=== PATIENT | male | born 1940 | race Caucasian/White ===

== ENCOUNTER → 2017-04-22 | Outpatient (CLI) | payer MEDICARE ==
[2017-04-22 13:16] LABS: MEAN CORPUSCULAR HEMOGLOBIN 32.6 pg (27.0-33.0); MEAN CORPUSCULAR VOLUME 93.1 fl (80.0-96.0); WHITE BLOOD COUNT 7.6 K/mm3 (4.0-10.0)
[2017-04-22 14:24] LABS: ALBUMIN/GLOBULIN RATIO 1.29 (1.00-1.93); ALKALINE PHOSPHATASE 57 U/L (45-117); ALT/SGPT 31 U/L (12-78); ANION GAP 7 MEQ/L (8-16); AST/SGOT 18 U/L (15-37); BILIRUBIN,TOTAL 0.7 MG/DL (0.2-1.0); BLOOD UREA NITROGEN 23 MG/DL (7-18); CARBON DIOXIDE LEVEL 30 MEQ/L (21-32); CHLORIDE LEVEL 104 MEQ/L (98-107); CHOLESTEROL LEVEL 183 MG/DL (<200); CREATININE FOR GFR 0.87 MG/DL (0.70-1.30); GLOMERULAR FILTRATION RATE > 60.0 (>42); GLUCOSE, FASTING 88 MG/DL (83-110); MAGNESIUM LEVEL 2.1 MG/DL (1.8-2.4); SODIUM LEVEL 141 MEQ/L (136-145); TOTAL PROTEIN 7.1 GM/DL (6.4-8.2); TRIGLYCERIDES LEVEL 162 MG/DL (<150)
== END ==
LOC: M WUC 09:53
PROVIDERS: ATTEND Internal Medicine
DX: I10 Essential (primary) hypertension (principal); E78.00 Pure hypercholesterolemia, unspecified; Z79.899 Other long term (current) drug therapy

== ENCOUNTER → 2017-10-25 | Outpatient (CLI) | payer MEDICARE, OTHER ==
[2017-10-25 13:42] LABS: MEAN CORPUSCULAR HEMOGLOBIN 30.5 pg (27.0-33.0); MEAN CORPUSCULAR HGB CONC 33.5 g/dl (32.0-36.5); PLATELET COUNT, AUTOMATED 359 10^3/uL (150-450); RED CELL DISTRIBUTION WIDTH 12.2 % (11.5-14.5); WHITE BLOOD COUNT 7.4 10^3/uL (4.0-10.0)
[2017-10-25 14:08] LABS: ALBUMIN 4.3 GM/DL (3.2-5.2); ALBUMIN/GLOBULIN RATIO 1.26 (1.00-1.93); ALKALINE PHOSPHATASE 65 U/L (45-117); ALT/SGPT 32 U/L (12-78); ANION GAP 9 MEQ/L (8-16); AST/SGOT 24 U/L (7-37); BILIRUBIN,TOTAL 0.7 MG/DL (0.2-1.0); BLOOD UREA NITROGEN 18 MG/DL (7-18); CALCIUM LEVEL 8.9 MG/DL (8.8-10.2); CARBON DIOXIDE LEVEL 28 MEQ/L (21-32); CHLORIDE LEVEL 102 MEQ/L (98-107); CHOLESTEROL LEVEL 141 MG/DL (<200); GLOMERULAR FILTRATION RATE > 60.0 (>42); GLUCOSE, FASTING 102 MG/DL (83-110); MAGNESIUM LEVEL 2.2 MG/DL (1.8-2.4); POTASSIUM SERUM 4.1 MEQ/L (3.5-5.1); SODIUM LEVEL 139 MEQ/L (136-145); TOTAL PROTEIN 7.7 GM/DL (6.4-8.2); TRIGLYCERIDES LEVEL 104 MG/DL (<150)
== END ==
LOC: M WUC 10:01
PROVIDERS: ATTEND Internal Medicine
DX: I10 Essential (primary) hypertension (principal); E78.00 Pure hypercholesterolemia, unspecified; Z79.899 Other long term (current) drug therapy

== ENCOUNTER → 2018-01-24 | Outpatient (CLI) | payer OTHER, MEDICARE | LOC: M RAD 12:55 | DX: M25.511 Pain in right shoulder (principal) | CPT/HCPCS: 73221 ==

== ENCOUNTER → 2018-05-16 | Outpatient (CLI) | payer OTHER ==
[2018-05-16 12:36] LABS: ALBUMIN 4.2 GM/DL (3.2-5.2); ALKALINE PHOSPHATASE 77 U/L (45-117); ALT/SGPT 34 U/L (12-78); ANION GAP 9 MEQ/L (8-16); AST/SGOT 23 U/L (7-37); BILIRUBIN,TOTAL 0.9 MG/DL (0.2-1.0); BLOOD UREA NITROGEN 22 MG/DL (7-18); CALCIUM LEVEL 8.7 MG/DL (8.8-10.2); CARBON DIOXIDE LEVEL 29 MEQ/L (21-32); CHLORIDE LEVEL 101 MEQ/L (98-107); CHOLESTEROL LEVEL 189 MG/DL (<200); CHOLESTEROL RISK RATIO 4.108 (<5); CREATININE FOR GFR 0.89 MG/DL (0.70-1.30); GLOMERULAR FILTRATION RATE > 60.0 (>42); GLUCOSE, FASTING 87 MG/DL (70-100); HDL CHOLESTEROL 46 MG/DL (>40); LDL CHOLESTEROL 114.2 MG/DL (<100); MAGNESIUM LEVEL 2.1 MG/DL (1.8-2.4); NON-HDL-C 143 MG/DL; POTASSIUM SERUM 3.9 MEQ/L (3.5-5.1); SODIUM LEVEL 139 MEQ/L (136-145); TOTAL PROTEIN 7.7 GM/DL (6.4-8.2); TRIGLYCERIDES LEVEL 144 MG/DL (<150)
== END ==
LOC: M WUC 10:06
DX: I10 Essential (primary) hypertension (principal); E78.00 Pure hypercholesterolemia, unspecified
CPT/HCPCS: 83735

== ENCOUNTER → 2018-07-21 | Outpatient (REF) | payer MEDICARE, MEDICAID ==
[2018-07-21 12:20] LABS: APPEARANCE, URINE HAZY (CLEAR); BACTERIA, URINE AUTO NEGATIVE (NEGATIVE); BILIRUBIN, URINE AUTO NEGATIVE (NEGATIVE); BLOOD, URINE BLOOD NEGATIVE (NEGATIVE); COLOR, URINE YELLOW (YELLOW); GLUCOSE, URINE (UA) AUTO NEGATIVE (NEGATIVE); KETONE, URINE AUTO TRACE mg/dL (NEGATIVE); LEUKOCYTE ESTERASE, URINE AUTO NEGATIVE (NEGATIVE); MUCUS, URINE SMALL (NEGATIVE); NITRITE, URINE AUTO NEGATIVE (NEGATIVE); PROTEIN, URINE AUTO NEGATIVE (NEGATIVE); RBC, URINE AUTO 1 /HPF (0-3); SPECIFIC GRAVITY URINE AUTO 1.023 (1.002-1.035); SQUAMOUS EPITHELIAL CELL UR AU 0 /HPF (0-6); WBC, URINE AUTO 2 /HPF (0-3)
== END ==
LOC: M SFHCPLAZ 09:17
DX: R30.0 Dysuria (principal)
CPT/HCPCS: 81001

== ENCOUNTER → 2018-11-21 | Outpatient (REF) | payer MEDICARE, MEDICAID ==
[2018-11-21 12:20] LABS: HEMATOCRIT 37.3 % (42.0-52.0); HEMOGLOBIN 12.6 g/dl (13.5-17.5); MEAN CORPUSCULAR HEMOGLOBIN 30.3 pg (27.0-33.0); MEAN CORPUSCULAR HGB CONC 33.8 g/dl (32.0-36.5); MEAN CORPUSCULAR VOLUME 89.7 fl (80.0-96.0); PLATELET COUNT, AUTOMATED 358 10^3/uL (150-450); RED BLOOD COUNT 4.16 10^6/uL (4.30-6.10); WHITE BLOOD COUNT 19.3 10^3/uL (4.0-10.0)
[2018-11-21 12:32] LABS: ALBUMIN 4.3 GM/DL (3.2-5.2); ALT/SGPT 29 U/L (12-78); BILIRUBIN,TOTAL 0.6 MG/DL (0.2-1.0); BLOOD UREA NITROGEN 25 MG/DL (7-18); CALCIUM LEVEL 9.3 MG/DL (8.8-10.2); CARBON DIOXIDE LEVEL 23 MEQ/L (21-32); CHLORIDE LEVEL 104 MEQ/L (98-107); CHOLESTEROL LEVEL 170 MG/DL (<200); CHOLESTEROL RISK RATIO 2.931 (<5); CREATININE FOR GFR 0.89 MG/DL (0.70-1.30); GLOMERULAR FILTRATION RATE > 60.0 (>35); GLUCOSE, FASTING 104 MG/DL (70-100); HDL CHOLESTEROL 58 MG/DL (>40); LDL CHOLESTEROL 92 MG/DL (<100); MAGNESIUM LEVEL 2.3 MG/DL (1.8-2.4); NON-HDL-C 112 MG/DL; SODIUM LEVEL 140 MEQ/L (136-145); TOTAL PROTEIN 7.9 GM/DL (6.4-8.2); TRIGLYCERIDES LEVEL 98 MG/DL (<150)
== END ==
LOC: M SFHCPLAZ 10:40
PROVIDERS: ATTEND Internal Medicine
DX: D64.9 Anemia, unspecified (principal); I10 Essential (primary) hypertension; E78.00 Pure hypercholesterolemia, unspecified

== ENCOUNTER → 2019-05-05 | Outpatient (REF) | payer MEDICARE, MEDICAID ==
[2019-05-05 10:13] LABS: BASO # 0.1 10^3/uL (0.0-0.2); EOS # 0.3 10^3/uL (0.0-0.50); HEMATOCRIT 39.8 % (42.0-52.0); HEMOGLOBIN 13.4 g/dl (13.5-17.5); LYMPH # 1.7 10^3/uL (1.5-4.5); LYMPH % 20.2 % (24.0-44.0); MEAN CORPUSCULAR HEMOGLOBIN 31.6 pg (27.0-33.0); MEAN CORPUSCULAR HGB CONC 33.7 g/dl (32.0-36.5); MEAN CORPUSCULAR VOLUME 93.9 fl (80.0-96.0); MONO # 0.9 10^3/uL (0.0-0.8); MONO % 10.4 % (0.0-5.0); NEUTROPHILS # 5.3 10^3/uL (1.8-7.7); NEUTROPHILS % 63.9 % (36.0-66.0); PLATELET COUNT, AUTOMATED 345 10^3/uL (150-450); RED BLOOD COUNT 4.24 10^6/uL (4.30-6.10); WHITE BLOOD COUNT 8.4 10^3/uL (4.0-10.0)
[2019-05-05 10:54] LABS: ALBUMIN 4.2 GM/DL (3.2-5.2); ALT/SGPT 31 U/L (12-78); BILIRUBIN,TOTAL 0.5 MG/DL (0.2-1.0); BLOOD UREA NITROGEN 23 MG/DL (7-18); CALCIUM LEVEL 9.2 MG/DL (8.8-10.2); CARBON DIOXIDE LEVEL 27 MEQ/L (21-32); CHLORIDE LEVEL 103 MEQ/L (98-107); CHOLESTEROL LEVEL 166 MG/DL (<200); CHOLESTEROL RISK RATIO 3.531 (<5); CREATININE FOR GFR 0.86 MG/DL (0.70-1.30); FERRITIN 43 NG/ML (26-388); FOLATE 14.7 NG/ML; GLOMERULAR FILTRATION RATE > 60.0 (>35); GLUCOSE, FASTING 95 MG/DL (70-100); HDL CHOLESTEROL 47 MG/DL (>40); IRON (FE) 100 UG/DL (65-175); LDL CHOLESTEROL 88 MG/DL (<100); MAGNESIUM LEVEL 2.1 MG/DL (1.8-2.4); NON-HDL-C 119 MG/DL; PERCENT SATURATION 31.3 % (19.7-50.0); POTASSIUM SERUM 4.3 MEQ/L (3.5-5.1); SODIUM LEVEL 138 MEQ/L (136-145); TOTAL IRON BINDING CAPACITY 320 UG/DL (250-450); TOTAL PROTEIN 7.5 GM/DL (6.4-8.2); TRIGLYCERIDES LEVEL 154 MG/DL (<150); VITAMIN B12 LEVEL 402 PG/ML
== END ==
LOC: M SFHCPLAZ 08:16
PROVIDERS: ATTEND Internal Medicine
DX: I10 Essential (primary) hypertension (principal); E78.00 Pure hypercholesterolemia, unspecified; D64.9 Anemia, unspecified

== ENCOUNTER → 2019-11-03 | Outpatient (REF) | payer MEDICARE, MEDICAID ==
[2019-11-03 14:17] LABS: HEMATOCRIT 41.3 % (42.0-52.0); MEAN CORPUSCULAR HEMOGLOBIN 29.3 pg (27.0-33.0); MEAN CORPUSCULAR HGB CONC 31.5 g/dl (32.0-36.5); PLATELET COUNT, AUTOMATED 355 10^3/uL (150-450); RED BLOOD COUNT 4.44 10^6/uL (4.30-6.10); WHITE BLOOD COUNT 6.4 10^3/uL (4.0-10.0)
[2019-11-03 14:25] LABS: ALBUMIN 4.1 GM/DL (3.2-5.2); ALT/SGPT 28 U/L (12-78); BILIRUBIN,TOTAL 0.5 MG/DL (0.2-1.0); BLOOD UREA NITROGEN 21 MG/DL (7-18); CARBON DIOXIDE LEVEL 29 MEQ/L (21-32); CHLORIDE LEVEL 104 MEQ/L (98-107); CHOLESTEROL LEVEL 170 MG/DL (<200); CHOLESTEROL RISK RATIO 3.695 (<5); CREATININE FOR GFR 0.89 MG/DL (0.70-1.30); GLOMERULAR FILTRATION RATE > 60.0 (>35); GLUCOSE, FASTING 97 MG/DL (70-100); HDL CHOLESTEROL 46 MG/DL (>40); LDL CHOLESTEROL 102 MG/DL (<100); MAGNESIUM LEVEL 1.9 MG/DL (1.8-2.4); NON-HDL-C 124 MG/DL; SODIUM LEVEL 138 MEQ/L (136-145); TOTAL PROTEIN 7.3 GM/DL (6.4-8.2); TRIGLYCERIDES LEVEL 108 MG/DL (<150)
== END ==
LOC: M SFHCPLAZ 09:37
PROVIDERS: ATTEND Internal Medicine
DX: J45.909 Unspecified asthma, uncomplicated (principal); I10 Essential (primary) hypertension; E78.00 Pure hypercholesterolemia, unspecified

== ENCOUNTER → 2020-05-18 | Outpatient (REF) | payer MEDICARE, MEDICAID ==
[2020-05-18 11:40] LABS: HEMATOCRIT 41.2 % (42.0-52.0); HEMOGLOBIN 13.2 g/dl (13.5-17.5); MEAN CORPUSCULAR HEMOGLOBIN 29.3 pg (27.0-33.0); MEAN CORPUSCULAR VOLUME 91.6 fl (80.0-96.0); PLATELET COUNT, AUTOMATED 337 10^3/uL (150-450)
[2020-05-18 12:19] LABS: ALBUMIN 4.1 GM/DL (3.2-5.2); ALT/SGPT 27 U/L (12-78); BILIRUBIN,TOTAL 0.6 MG/DL (0.2-1.0); BLOOD UREA NITROGEN 21 MG/DL (7-18); CARBON DIOXIDE LEVEL 30 MEQ/L (21-32); CHLORIDE LEVEL 104 MEQ/L (98-107); CREATININE FOR GFR 0.85 MG/DL (0.70-1.30); GLOMERULAR FILTRATION RATE > 60.0 (>35); GLUCOSE, FASTING 96 MG/DL (70-100); MAGNESIUM LEVEL 2.3 MG/DL (1.8-2.4); POTASSIUM SERUM 4.1 MEQ/L (3.5-5.1); SODIUM LEVEL 138 MEQ/L (136-145); TOTAL PROTEIN 7.7 GM/DL (6.4-8.2)
== END ==
LOC: M PLALAB 07:58
PROVIDERS: ATTEND Internal Medicine
DX: D64.9 Anemia, unspecified (principal); I10 Essential (primary) hypertension

== ENCOUNTER → 2020-10-26 | Outpatient (CLI) | payer SELFPAY | LOC: M LABSMTC 13:53 | PROVIDERS: ATTEND Pediatrics | DX: Z20.828 Contact with and (suspected) exposure to other viral communicable diseases (principal) ==

== ENCOUNTER → 2020-11-15 | Outpatient (REF) | payer MEDICARE, MEDICAID ==
[2020-11-15 11:12] LABS: ALBUMIN 4.1 GM/DL (3.2-5.2); ALT/SGPT 30 U/L (12-78); BILIRUBIN,TOTAL 0.8 MG/DL (0.2-1.0); BLOOD UREA NITROGEN 17 MG/DL (7-18); CALCIUM LEVEL 9.2 MG/DL (8.8-10.2); CARBON DIOXIDE LEVEL 30 MEQ/L (21-32); CHLORIDE LEVEL 103 MEQ/L (98-107); CHOLESTEROL LEVEL 155 MG/DL (<200); CHOLESTEROL RISK RATIO 3.297 (<5); GLOMERULAR FILTRATION RATE > 60.0 (>35); GLUCOSE, FASTING 87 MG/DL (70-100); HDL CHOLESTEROL 47 MG/DL (>40); LDL CHOLESTEROL 76 MG/DL (<100); MAGNESIUM LEVEL 2.2 MG/DL (1.8-2.4); NON-HDL-C 108 MG/DL; SODIUM LEVEL 137 MEQ/L (136-145); TOTAL PROTEIN 7.4 GM/DL (6.4-8.2); TRIGLYCERIDES LEVEL 159 MG/DL (<150)
== END ==
LOC: M PLALAB 08:21
PROVIDERS: ATTEND Internal Medicine
DX: I10 Essential (primary) hypertension (principal); E78.00 Pure hypercholesterolemia, unspecified

== ENCOUNTER → 2021-05-22 | Outpatient (CLI) | payer MEDICARE, MEDICAID ==
[2021-05-22 11:30] LABS: BASO # 0.1 10^3/uL (0.0-0.2); EOS # 0.4 10^3/uL (0.0-0.5); EOS % 4.6 % (0.0-3.0); HEMATOCRIT 39.8 % (42.0-52.0); HEMOGLOBIN 13.1 g/dl (13.5-17.5); LYMPH % 24.1 % (24.0-44.0); MEAN CORPUSCULAR HEMOGLOBIN 30.3 pg (27.0-33.0); MEAN CORPUSCULAR HGB CONC 32.9 g/dl (32.0-36.5); MEAN CORPUSCULAR VOLUME 91.9 fl (80.0-96.0); MONO # 0.8 10^3/uL (0.0-0.8); MONO % 9.3 % (2.0-8.0); NEUTROPHILS % 60.5 % (36.0-66.0); PLATELET COUNT, AUTOMATED 424 10^3/uL (150-450); RED BLOOD COUNT 4.33 10^6/uL (4.30-6.10); WHITE BLOOD COUNT 8.2 10^3/uL (4.0-10.0)
[2021-05-22 12:18] LABS: ALBUMIN 4.2 GM/DL (3.2-5.2); ALT/SGPT 32 U/L (12-78); BILIRUBIN,TOTAL 0.7 MG/DL (0.2-1.0); BLOOD UREA NITROGEN 21 MG/DL (7-18); CALCIUM LEVEL 9.2 MG/DL (8.8-10.2); CARBON DIOXIDE LEVEL 28 MEQ/L (21-32); CHLORIDE LEVEL 103 MEQ/L (98-107); CHOLESTEROL LEVEL 202 MG/DL (<200); CHOLESTEROL RISK RATIO 4.697 (<5); CREATININE FOR GFR 0.97 MG/DL (0.70-1.30); GLOMERULAR FILTRATION RATE > 60.0 (>35); GLUCOSE, FASTING 98 MG/DL (70-100); HDL CHOLESTEROL 43 MG/DL (>40); LDL CHOLESTEROL 130 MG/DL (<100); MAGNESIUM LEVEL 2.2 MG/DL (1.8-2.4); NON-HDL-C 159 MG/DL; POTASSIUM SERUM 4.2 MEQ/L (3.5-5.1); SODIUM LEVEL 137 MEQ/L (136-145); TOTAL PROTEIN 7.7 GM/DL (6.4-8.2); TRIGLYCERIDES LEVEL 144 MG/DL (<150)
== END ==
LOC: M PLALAB 08:33
PROVIDERS: ATTEND Internal Medicine
DX: J45.909 Unspecified asthma, uncomplicated (principal); Z11.59 Encounter for screening for other viral diseases; E78.00 Pure hypercholesterolemia, unspecified; I10 Essential (primary) hypertension
CPT/HCPCS: 36415; 80053; 80061; 83735; 85025; G0472

== ENCOUNTER → 2021-05-23 | Outpatient (CLI) | payer MEDICARE, MEDICAID ==
--- NOTE | 2021-05-23 09:53 | REP ---
INDICATION: COUGH COMPARISON: 12/23/2012 TECHNIQUE: PA and lateral. FINDINGS: The mediastinum and cardiac silhouette are normal. The lung gray are clear and without acute consolidation, effusion, or pneumothorax. The skeletal structures are intact and normal. IMPRESSION: No acute cardiopulmonary process. <Electronically signed by Gatito Wheeler > 05/23/21 [id number]
== END ==
LOC: M PLALAB 08:55 → M PLAIMG 08:55
PROVIDERS: ATTEND Internal Medicine
DX: R05 Cough (principal)

== ENCOUNTER → 2021-07-24 | Outpatient (CLI) | payer MEDICARE, MEDICAID ==
--- NOTE | 2021-07-24 10:32 | REP ---
INDICATION: LOWER ABDOMINAL PAIN, UNSPECIFIED COMPARISON: None. TECHNIQUE: Supine views of the abdomen and pelvis FINDINGS: Bowel gas pattern is nonspecific and without obstruction or perforation. No organomegaly. Skeletal structures demonstrate age-related changes. Vascular calcifications noted.. IMPRESSION: Unremarkable nonspecific abdominal radiographs. <Electronically signed by Gatito Wheeler > 07/24/21 102
[2021-07-24 13:44] LABS: BASO # 0.1 10^3/uL (0.0-0.2); BASO % 0.6 % (0.0-1.0); EOS # 0.2 10^3/uL (0.0-0.5); EOS % 2.1 % (0.0-3.0); HEMATOCRIT 41.8 % (42.0-52.0); HEMOGLOBIN 13.3 g/dl (13.5-17.5); LYMPH # 1.5 10^3/uL (1.5-5.0); LYMPH % 15.3 % (24.0-44.0); MEAN CORPUSCULAR HEMOGLOBIN 29.6 pg (27.0-33.0); MEAN CORPUSCULAR HGB CONC 31.8 g/dl (32.0-36.5); MEAN CORPUSCULAR VOLUME 93.1 fl (80.0-96.0); MONO # 0.8 10^3/uL (0.0-0.8); MONO % 8.2 % (2.0-8.0); NEUTROPHILS # 7.1 10^3/uL (1.5-8.5); NEUTROPHILS % 73.6 % (36.0-66.0); PLATELET COUNT, AUTOMATED 422 10^3/uL (150-450); RED BLOOD COUNT 4.49 10^6/uL (4.30-6.10); WHITE BLOOD COUNT 9.7 10^3/uL (4.0-10.0)
[2021-07-24 16:28] LABS: ALBUMIN 4.3 GM/DL (3.2-5.2); ALT/SGPT 40 U/L (12-78); BILIRUBIN,TOTAL 0.6 MG/DL (0.2-1.0); BLOOD UREA NITROGEN 16 MG/DL (7-18); CALCIUM LEVEL 9.5 MG/DL (8.8-10.2); CARBON DIOXIDE LEVEL 29 MEQ/L (21-32); CHLORIDE LEVEL 99 MEQ/L (98-107); CREATININE FOR GFR 0.89 MG/DL (0.70-1.30); GLOMERULAR FILTRATION RATE > 60.0 (>35); GLUCOSE, FASTING 92 MG/DL (70-100); LIPASE 155 U/L (73-393); POTASSIUM SERUM 4.1 MEQ/L (3.5-5.1); SODIUM LEVEL 135 MEQ/L (136-145)
== END ==
LOC: M PLAIMG 09:31
PROVIDERS: ATTEND Physician Assistant Medical
DX: R10.30 Lower abdominal pain, unspecified (principal); Z87.19 Personal history of other diseases of the digestive system; K59.00 Constipation, unspecified
CPT/HCPCS: 36415; 74018; 80053; 83690; 85025; G0463

== ENCOUNTER → 2021-10-19 | Outpatient (CLI) | payer MEDICARE, MEDICAID ==
[~2021-10-19] MED LIST: ASPI81TA26 PO; ATOR40TA75 PO; LOSA50TA5 PO; SPIR1CAP
== END ==
LOC: M LABSMTC 09:36
PROVIDERS: ATTEND Anesthesiology
DX: Z01.812 Encounter for preprocedural laboratory examination (principal); Z20.822 Contact with and (suspected) exposure to COVID-19

== ENCOUNTER 2021-10-23 09:44 | Day surgery (SDC) | payer MEDICARE, MEDICAID ==
[~2021-10-23] VITALS: Ht 165.1 cm; Wt 73.4 kg
[~2021-10-23 09:44] MED LIST changes: +LIDOCAINE 2% 100MG/5ML SDV (FOR ANES.) As Ordered ONE; +propofoL 200 MG/20 ML VIAL As Ordered ONE
--- OUTSIDE RECORDS SUMMARY | 2021-10-23 09:49 | CCD ---
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 Name Role Phone Fish, B Dany SANDS Unavailable Unavailable Fish, B Dany SANDS Unavailable Unavailable Fish, B Dany SANDS Unavailable Unavailable Fish, B Dany SANDS Unavailable Unavailable Fish, B Dany SANDS Unavailable Unavailable Fish, B Dany SANDS Unavailable Unavailable Fish, B Dany SANDS Unavailable Unavailable Fish, B Dany SANDS Unavailable Unavailable Fish, B Dany SANDS Unavailable Unavailable Fish, B Dany SANDS Unavailable Unavailable Fish, B Dany SANDS Unavailable Unavailable Fish, B Dany SANDS Unavailable Unavailable Fish, B Dany SANDS Unavailable Unavailable Fish, B Dany SANDS Unavailable Unavailable Fish, B Dany SANDS Unavailable Unavailable Fish, B Dany SANDS Unavailable Unavailable Fish, B Dany SANDS Unavailable Unavailable Fish, B Dany SANDS Unavailable Unavailable Fish, B Dany SANDS Unavailable Unavailable Fish, B Dany SANDS Unavailable Unavailable Fish, B Dany SANDS Unavailable Unavailable Fish, B Dany SANDS Unavailable Unavailable Fish, B Dany SANDS Unavailable Unavailable Fish, B Dany SANDS Unavailable Unavailable Fish, Mohan Saenz MD Unavailable Unavailable Fish, Mohan Saenz MD Unavailable Unavailable Fish, Mohan Saenz MD Unavailable Unavailable Fish, Mohan Saenz MD Unavailable Unavailable Fish, Mohan Saenz MD Unavailable Unavailable Fish, Mohan Saenz MD Unavailable Unavailable Fish, Mohan Saenz MD Unavailable Unavailable Fish, Mohan Saenz MD Unavailable Unavailable Fish, Mohan Saenz MD Unavailable Unavailable Fish, Mohan Saenz MD Unavailable Unavailable Fish, Mohan Saenz MD Unavailable Unavailable Fish, Mohan Saenz MD Unavailable Unavailable Fish, Mohan Saenz MD Unavailable Unavailable Fish, B Dany SANDS Unavailable Unavailable Fish, Mohan Saenz MD Unavailable Unavailable Fish, Mohan Saenz MD Unavailable Unavailable Fish, Mohan Saenz MD Unavailable Unavailable Fish, B Dany SANDS Unavailable Unavailable Fish, B Dany SANDS Unavailable Unavailable Fish, B Dany SANDS Unavailable Unavailable Fish, B Dany SANDS Unavailable Unavailable Fish, B Dany SANDS Unavailable Unavailable Fish, B Dany SANDS Unavailable Unavailable Fish, B Dany SANDS Unavailable Unavailable Fish, B Dany SANDS Unavailable Unavailable Fish, B Dany SANDS Unavailable Unavailable Fish, B Dany SANDS Unavailable Unavailable Fish, B Dany SANDS Unavailable Unavailable Fish, B Dany SANDS Unavailable Unavailable Fish, B Dany SANDS Unavailable Unavailable Fish, B Dany SANDS Unavailable Unavailable Fish, B Dany SANDS Unavailable Unavailable Fish, B Dany SANSD Unavailable Unavailable Jorden Charles JR, MD Unavailable Unavailable Jorden Charles JR, MD Unavailable Unavailable Jorden Charles JR, MD Unavailable Unavailable Jorden Charles JR, MD Unavailable Unavailable Jorden Charles JR, MD Unavailable Unavailable Jorden Charles JR, MD Unavailable Unavailable Jorden Charles JR, MD Unavailable Unavailable Jorden Charles JR, MD Unavailable Unavailable Jorden Charles JR, MD Unavailable Unavailable Jorden Charles JR, MD Unavailable Unavailable Jorden Charles JR, MD Unavailable Unavailable Jorden Charles JR, MD Unavailable Unavailable Jorden Charles JR, MD Unavailable Unavailable Jorden Charles JR, MD Unavailable Unavailable Jorden Charles JR, MD Unavailable Unavailable Jorden Charles JR, MD Unavailable Unavailable Jorden Charles JR, MD Unavailable Unavailable Jorden Charles JR, MD Unavailable Unavailable Jorden Charles JR, MD Unavailable Unavailable Jorden Charles JR, MD Unavailable Unavailable Jorden Charles JR, MD Unavailable Unavailable Jorden Charles JR, MD Unavailable Unavailable Jorden Charles JR, MD Unavailable Unavailable Jorden Charles JR, MD Unavailable Unavailable Jorden Charles JR, MD Unavailable Unavailable Jorden Charles JR, MD Unavailable Unavailable Jorden Charles JR, MD Unavailable Unavailable Jorden Charles JR, MD Unavailable Unavailable Jorden Charles JR, MD Unavailable Unavailable Jorden Charles JR, MD Unavailable Unavailable Jorden Charles JR, MD Unavailable Unavailable Melvin LEONG J Shon SANDS Unavailable Unavailable Melvin LEONG J Shon SANDS Unavailable Unavailable Melvin LEONG J Shon SANDS Unavailable Unavailable Melvin JR, J Shon SANDS Unavailable Unavailable Melvin JR, J Shon SANDS Unavailable Unavailable Melvin JR, J Shon SANDS Unavailable Unavailable Melvin JR, J Shon SANDS Unavailable Unavailable Melvin LEONG, J Shon SANDS Unavailable Unavailable Melvin JR, J Shon SANDS Unavailable Unavailable Melvin JR, J Shon SANDS Unavailable Unavailable Melvin LEONG J Shon SANDS Unavailable Unavailable Melvin LEONG J Shon SANDS Unavailable Unavailable Jorden Charles JR, MD Unavailable Unavailable Jorden Charles JR, MD Unavailable Unavailable Melvin LEONG J Shon SANDS Unavailable Unavailable Jorden Charles JR, MD Unavailable Unavailable Jorden Charles JR, MD Unavailable Unavailable Jorden Charles JR, MD Unavailable Unavailable Jorden Charles JR, MD Unavailable Unavailable Jorden Charles JR, MD Unavailable Unavailable Jorden Charles JR, MD Unavailable Unavailable Jorden Charles JR, MD Unavailable Unavailable Jorden Charles JR, MD Unavailable Unavailable Jorden Charles JR, MD Unavailable Unavailable Jorden Charles JR, MD Unavailable Unavailable Litzy Briggs MD Unavailable Unavailable Litzy Briggs MD Unavailable Unavailable Litzy Briggs MD Unavailable Unavailable Litzy Briggs MD Unavailable Unavailable Litzy Briggs MD Unavailable Unavailable Litzy Briggs MD Unavailable Unavailable Litzy Briggs MD Unavailable Unavailable Litzy Briggs MD Unavailable Unavailable Litzy Briggs MD Unavailable Unavailable Litzy Briggs MD Unavailable Unavailable Litzy Briggs MD Unavailable Unavailable Litzy Briggs MD Unavailable Unavailable Litzy Briggs MD Unavailable Unavailable Litzy Briggs MD Unavailable Unavailable Litzy Briggs MD Unavailable Unavailable Litzy Briggs MD Unavailable Unavailable Litzy Briggs MD Unavailable Unavailable Vaneenenaam, Litzy Corral MD Unavailable Unavailable Vaneenenaam, Litzy Corral MD Unavailable Unavailable Vaneenenaam, Litzy Corral MD Unavailable Unavailable Vaneenenaam, Litzy Corral MD Unavailable Unavailable Vaneenenaam, Litzy Corral MD Unavailable Unavailable Vaneenenaam, Litzy Corral MD Unavailable Unavailable Vaneenenaam, Litzy Corral MD Unavailable Unavailable Vaneenenaam, Litzy Corral MD Unavailable Unavailable Vaneenenaam, Litzy Corral MD Unavailable Unavailable Vaneenenaam, Litzy Corral MD Unavailable Unavailable Vaneenenaam, Litzy Corral MD Unavailable Unavailable Vaneenenaam, Litzy Corral MD Unavailable Unavailable Vaneenenaam, Litzy Corral MD Unavailable Unavailable Vaneenenaam, Litzy Corral MD Unavailable Unavailable Vaneenenaam, Litzy Corral MD Unavailable Unavailable Vaneenenaam, Litzy Corral MD Unavailable Unavailable Vaneenenaam, Litzy Corral MD Unavailable Unavailable Vaneenenaam, Litzy Corral MD Unavailable Unavailable Vaneenenaam, Litzy Corral MD Unavailable Unavailable Vaneenenaam, Litzy Corral MD Unavailable Unavailable Vaneenenaam, Litzy Corral MD Unavailable Unavailable Vaneenenaam, Litzy Corral MD Unavailable Unavailable Vaneenenaam, Litzy Corral MD Unavailable Unavailable Vaneenenaam, Litzy Corral MD Unavailable Unavailable Vaneenenaam, Litzy Corral MD Unavailable Unavailable Vaneenenaam, Litzy Corral MD Unavailable Unavailable Vaneenenaam, Litzy Corral MD Unavailable Unavailable Vaneenenaam, Litzy Corarl MD Unavailable Unavailable Vaneenenaam, Litzy Corral MD Unavailable Unavailable Vaneenenaam, Litzy Corral MD Unavailable Unavailable Re-disclosure Warning The records that you are about to access may contain information from federally-assisted alcohol or drug abuse programs. If such information is present, then the following federally mandated warning applies: This information has been disclosed to you from records protected by federal confidentiality rules (42 CFR part 2). The federal rules prohibit you from making any further disclosure of this information unless further disclosure is expressly permitted by the written consent of the person to whom it pertains or as otherwise permitted by 42 CFR part 2. A general authorization for the release of medical or other information is NOT sufficient for this purpose. The Federal rules restrict any use of the information to criminally investigate or prosecute any alcohol or drug abuse patient.The records that you are about to access may contain highly sensitive health information, the redisclosure of which is protected by Article 27-F of the [place] State Public Health law. If you continue you may have access to information: Regarding HIV / AIDS; Provided by facilities licensed or operated by the [facility] Office of Mental Health; or Provided by the [facility] Office for People With Developmental Disabilities. If such information is present, then the following [facility] mandated warning applies: This information has been disclosed to you from confidential records which are protected by state law. State law prohibits you from making any further disclosure of this information without the specific written consent of the person to whom it pertains, or as otherwise permitted by law. Any unauthorized further disclosure in violation of state law may result in a fine or [place] health [facility] sentence or both. A general authorization for the release of medical or other information is NOT sufficient authorization for further disc losure. Encounters Encounter Providers Location Date Indications Data Source(s ) Outpatient Attender: Shon Padilla/Brenda/Beau/Devon mendoza 08/07/2021 10:15:00 AM EDT [facility] ([facility]) Outpatient [address] [facility] [place] [address] 07/24/2021 12:00:00 AM EDT eCW1 ([facility]) Unknown [address] [facility] [place] [address] 07/24/2021 12:00:00 AM EDT eCW1 ([facility]) OFFICE OUTPATIENT VISIT 15 MINUTES Attender: Dany Phillips MD Phys ical Therapy 06/02/2021 08:30:00 AM EDT [facility] ([facility]) Office Visit, Est Pt., Level [address] [place] [address] 05/23/2021 12:00:00 AM EDT eCW1 ([facility]) Office Visit Attender: Litzy Briggs MD Physical Therap y 04/26/2021 03:00:00 PM EDT [facility] ([facility]) Outpatient 04/15/2021 07:13:53 PM EDT - 021 07:34:45 PM EDT [facility] ([facility]) Outpatient Attender: Dany Phillips MD Physical Therapy 03/31/2021 1 0:00:00 AM EDT [facility] ([facility]) [place] [address] [facility] [place] [address] 12/13/2020 12:00:00 AM EST eCW1 ([facility]) [place] [address] [facility] [place] [address] 11/22/2020 12:00:00 AM EST eCW1 ([facility]) Office Visit, Est Pt., Level [address] [place] [address] 11/21/2020 12:00:00 AM EST eCW1 ([facility]) Immunizations Vaccine Date Status Description Data Source(s) COVID-19 VACCINE Moderna 09/15/2021 12:00:00 AM EDT completed [facility] Vaccine Series Complete: NOThis Data was Submitted to [facility] Via [employer]. Zoster 50mcg/0.5mL Shingrix 02/28/2021 08:40:00 AM EDT completed eCW1 ([facility]) Zoster 50mcg/0.5mL Shingrix 02/28/2021 08:40:00 AM EDT completed eCW1 ([facility]) Zoster 50mcg/0.5mL Shingrix 02/28/2021 08:40:00 AM EDT completed eCW1 ([facility]) Medications Medication Brand Name Start Date Product Form Dose Route Admi nistrative Instructions Pharmacy Instructions Status Indications Reaction Description Data Source(s) Amoxicillin 875 MG / Clavulanate 125 MG Oral Tablet Amoxicillin-Pot Clavulanate 875-125 MG Amoxicillin-Pot Clavulanate 875-125 MG 07/24/2021 12:00:00 AM ED T 1.0 {tablet} active Amoxicillin-Pot Cla vulanate 875-125 MG eCW1 ([facility]) Amoxicillin 875 MG / Clavulanate 125 MG Oral Tablet Amoxicillin-Pot Clavulanate 875-125 MG Amoxicillin-Pot Clavulanate 875-125 MG 07/24/2021 12:00:00 AM ED T 1.0 {tablet} active Amoxicillin-Pot Cla vulanate 875-125 MG eCW1 ([facility]) tiotropium 0.018 MG/ACTUAT Inhalant Powder [Spiriva] S piriva HandiHaler 18 MCG Spiriva HandiHaler 18 MCG 05/23/2021 12:00:00 AM EDT active Spiriva HandiHaler 18 MCG eCW1 ([facility]) tiotropium 0.018 MG/ACTUAT Inhalant Powder [Spiriva] S piriva HandiHaler 18 MCG Spiriva HandiHaler 18 MCG 05/23/2021 12:00:00 AM EDT active Spiriva HandiHaler 18 MCG eCW1 ([facility]) tiotropium 0.018 MG/ACTUAT Inhalant Powder [Spiriva] S piriva HandiHaler 18 MCG Spiriva HandiHaler 18 MCG 05/23/2021 12:00:00 AM EDT active Spiriva HandiHaler 18 MCG eCW1 ([facility]) Prednisone 20 MG Oral Tablet predniSONE 20 MG predniSONE 20 MG 05/23/2021 12:00:00 AM EDT 1.0 {tablet} active pr edniSONE 20 MG eCW1 ([facility]) Prednisone 20 MG Oral Tablet predniSONE 20 MG predniSONE 20 MG 05/23/2021 12:00:00 AM EDT 1.0 {tablet} active pr edniSONE 20 MG eCW1 ([facility]) Prednisone 20 MG Oral Tablet predniSONE 20 MG predniSONE 20 MG 05/23/2021 12:00:00 AM EDT 1.0 {tablet} active pr edniSONE 20 MG eCW1 ([facility]) Acetaminophen 300 MG / Codeine Phosphate 30 MG Oral Tablet [Tylenol with Codeine] Tylenol With Codeine #3 04/05/2021 12:00:00 AM EDT completed [facility] ([facility]) Mometasone Furoate 0.1 % UNK 11/22/2020 12:00:00 AM EST active Mometasone Furoate 0.1 % eCW1 ([facility]) Mometasone Furoate 0.1 % UNK 11/22/2020 12:00:00 AM EST active Mometasone Furoate 0.1 % eCW1 ([facility]) Mometasone Furoate 0.1 % UNK 11/22/2020 12:00:00 AM EST active Mometasone Furoate 0.1 % eCW1 ([facility]) Mometasone Furoate 0.1 % UNK 11/22/2020 12:00:00 AM EST active Mometasone Furoate 0.1 % eCW1 ([facility]) Fluticasone Propionate 50 MCG/ACT Fluticasone Propionate 50 MCG/ACT 11/22/2020 12:00:00 AM EST 2.0 {spray_in_each_nostril} acti ve Fluticasone Propionate 50 MCG/ACT eCW1 ([facility]) Fluticasone Propionate 50 MCG/ACT Fluticasone Propionate 50 MCG/ACT 11/22/2020 12:00:00 AM EST 2.0 {spray_in_each_nostril} acti ve Fluticasone Propionate 50 MCG/ACT eCW1 ([facility]) Fluticasone Propionate 50 MCG/ACT Fluticasone Propionate 50 MCG/ACT 11/22/2020 12:00:00 AM EST 2.0 {spray_in_each_nostril} acti ve Fluticasone Propionate 50 MCG/ACT eCW1 ([facility]) Mometasone Furoate 0.1 % UNK 11/22/2020 12:00:00 AM EST active Mometasone Furoate 0.1 % eCW1 ([facility]) Mometasone Furoate 0.1 % UNK 11/22/2020 12:00:00 AM EST active Mometasone Furoate 0.1 % eCW1 ([facility]) Fluticasone Propionate 50 MCG/ACT Fluticasone Propionate 50 MCG/ACT 11/22/2020 12:00:00 AM EST 2.0 {spray_in_each_nostril} acti ve Fluticasone Propionate 50 MCG/ACT eCW1 ([facility]) Fluticasone Propionate 50 MCG/ACT Fluticasone Propionate 50 MCG/ACT 11/22/2020 12:00:00 AM EST 2.0 {spray_in_each_nostril} acti ve Fluticasone Propionate 50 MCG/ACT eCW1 ([facility]) Fluticasone Propionate 50 MCG/ACT Fluticasone Propionate 50 MCG/ACT 11/22/2020 12:00:00 AM EST 2.0 {spray_in_each_nostril} acti ve Fluticasone Propionate 50 MCG/ACT eCW1 ([facility]) Insurance Providers Payer name Policy type / Coverage type Policy ID Covered democrat ID Covered democrat's relationship to mcarthur Policy [place] Plan Information [employer] Part B [id number] Self Y [id number] BS [employer] Part B [id number] Self Y [id number] [employer] Part B [id number] [id number] Self Y [id number] [employer] Part B [id number] 2.840.1.88[id number] Self Y [id number] [employer] Part B [id number] 2.840.1.889599.3.227.99.991.39224.0 Self Y [id number] BS [employer] Part B [id number] 2.840.1.683037.3.227.99.991.33536.0 Self Y [id number] BS [employer] Part B [id number] 2.840.1.125972.3.227.99.991.65118.0 Self Y [id number] [employer] Compensation [id number] 2.840.1.200896.3.227.99.991.60942.0 Self 3 [id number] [employer] Compensation [id number] 2.16.840.1.402327.3.227.99.991.64566.0 Self 3 [id number] [employer] Workers Compensation [id number] 2.16.840.1.788520.3.227.99.991.55830.0 Self 3 [id number] [employer] Workers Compensation [id number] 2.16.840.1.035584.3.227.99.991.21170.0 Self 3 [id number] [employer] Workers Compensation [id number] 2.16.840.1.240145.3.227.99.991.06947.0 Self 3 [id number] [employer] Workers Compensation [id number] 2.16.840.1.043371.3.227.99.991.52220.0 Self 3 [id number] [employer] Workers Compensation [id number] 2.16.840.1.011778.3.227.99.991.75676.0 Self 3 [id number] MEDICARE A [id number] Self [id number] A MEDICARE [id number] Shannan [id number] A [id number] A [facility] [id number] [facility] [id number] [facility] [id number] 2.16.840.1.634915.3.227.99.991.27299.0 Self 0 [id number] Medicare [facility] Medigap Part B [id number] 2.840.1.611925.3.227.99.991.64075.0 Self 0 [id number] [facility] [id number] 2.840.1.814889.3.227.99.991.76053.0 Self 0 [id number] [facility] [id number] 2.16.840.1.459157.3.227.99.991.57310.0 Self 0 [id number] Medicare [facility] Part B [id number] 2.16.840.1.554460.3.227.99.991.57584.0 Self 0 [id number] [place] B [id number] 2.16.840.1.464672.3.227.99.991.57574.0 Self 0 [id number] [place] Part B [id number] 2.16.840.1.824475.3.227.99.991.58416.0 Self 0 [id number] AARP U [id number] Self [id number] 2 AARP U [id number] Self [id number] TODAYS OPTIONS [id number] SP [id number] [facility] Medicare Advantage Commercial [id number] 2.16.840.1.017256.3.227.99.991.95918.0 Self 1 [id number] Medicaid [facility] Part B [id number] 2.16.840.1.573576.3.227.99.991. 40095.0 Self [id number] Medicaid [facility] Part B [id number] 2.16.840.1.333798.3.227.99.991. 23299.0 Self [id number] Managed Care - [facility] Community Plan P not a managed care p S not a managed care p Managed Care - [facility] Community Plan P [id number] S [id number] When You Wish [facility] [employer] [id number] Self [id number] ANSI-Not a Secondary Insurance [id number] ANSI-Commercial [id number] ANSI-Medicaid [id number] ANSI-Medicare Part B [id number] ANSI-Medicare Part B [id number] [facility] O [id number] S [id number] ANSI-Commercial [id number] ANSI-Not a Secondary Insurance [id number] ANSI-Medicaid [id number] ANSI-Medicare Part B [id number] ANSI-Medicare Part B [id number] [employer] Medigap Part B [id number]777.0 Self 0 [id number] [employer] Medigap Part B [id number] .1.804752.3.227. 99.991.46220.0 Self [id number] Medicaid [place] Medigap Part B [id number] .[id number]. 86795.0 Self [id number] MEDICAID M [id number] S [id number] [facility] DUAL COMPLETE O [id number] S [id number] ANSI-Medicare Part B [id number] ANSI-Medicare Part B [id number] ANSI-Medicaid [id number] ANSI-Commercial [id number] ANSI-Not a Secondary Insurance [id number] ANSI-Medicare Part B [id number] ANSI-Medicaid [id number] ANSI-Commercial [id number] ANSI-Not a Secondary Insurance [id number] ANSI-Medicare Part B [id number] [employer] Medigap Part B [id number] 2.160.1.291415.3.227.99.991.99163.0 Self 0 [id number] [employer] Medigap Part B [id number] 2.160.1.383048.3.227. 99.991.18665.0 Self [id number] Medicaid [place] Medigap Part B [id number] 2.0.1.813937.3.227.99.991. 61220.0 Self [id number] [facility] [id number] [employer] Medigap Part B [id number] 2.0.1.894168.3.227.99.991.21390.0 Self 0 [id number] [employer] Medigap Part B [id number] 2.0.1.218141.3.227. 99.991.73833.0 Self [id number] Medicaid [place] Medigap Part B [id number] 2.0.1.420676.3.227.99.991. 85958.0 Self [id number] [employer] Medigap Part B [id number] 2.0.1.796317.3.227.99.991.83120.0 Self 0 [id number] [employer] Medigap Part B [id number] 2.16840.1.630576.3.227. 99.991.63135.0 Self [id number] [employer] Medigap Part B [id number] 2.160.1.287061.3.227.99.991.57611.0 Self 0 [id number] [employer] Medigap Part B [id number] 2.840.1.540132.3.227. 99.991.17181.0 Self [id number] TODAYS OPTIONS [id number] SP [id number] [facility] OPTIONS [id number] SP [id number] MEDICARE [id number] SP [id number] A [employer] OPTIONS [id number] SP [id number] [employer] CAS[employer] INS O [id number] S [id number] FARM FAMILY [id number]/F [id number] SP [id number] [employer] [place] [id number] SP [id number] [employer] INS O [id number] S [id number] [employer] [place] [id number] S [id number] [employer] [facility] [facility] OPTIONS [id number] SP [id number] [place] [id number] SP [id number] N [id number] 1 [facility] [id number] SP [id number] [place] [id number] SP [id number] SELF PAY ONLY [id number] SP [id number] AAR S [id number] S [id number] [facility] Secure Horizons P [id number] S [id number] MEDICAID [id number] SP [id number] [facility] O [id number] S [id number] ANSI-Medicare Part B [id number] ANSI-Commercial [id number] ANSI-Medicare Part B [id number] ANSI-Medicaid [id number] ANSI-Not a Secondary Insurance [id number] ANSI-Medicare Part B [id number] ANSI-Commercial [id number] ANSI-Not a Secondary Insurance [id number] ANSI-Medicaid [id number] ANSI-Medicare Part B [id number] ANSI-Commercial [id number] ANSI-Not a Secondary Insurance [id number] ANSI-Medicaid [id number] ANSI-Medicare Part B [id number] ANSI-Medicare Part B [id number] [facility] Options Medigap Part B [id number] Self [id number] [employer] Options Medigap Part B [id number] Self [id number] Medicaid [place] Medigap Part B [id number] Self [id number] [facility] Options Medigap Part B [id number] Self [id number] [employer] Medigap Part B [id number] Self [id number] Medicaid [place] Medigap Part B [id number] Self [id number] ANSI-Commercial [id number] ANSI-Medicaid [id number] ANSI-Not a Secondary Insurance [id number] ANSI-Medicare Part B [id number] ANSI-Medicare Part B [id number] Problems, Conditions, and Diagnoses Code Display Name Description Problem Type Effective Dates Data Source(s) 89630022 Essential hypertension Essential hypertension Problem 08/02/2021 12:00:00 AM EDT MEDENT ([facility]) K59.00 46118689 Constipation, unspecified constipation ty pe Problem 07/24/2021 12:00:00 AM EDT eCW1 ([facility]) Surgeries/Procedures Procedure Description Date Indications Data Source(s) OFFICE OUTPATIENT NEW 45 MINUTES 08/07/2021 12:00:00 A M EDT MEDENT ([facility]) OFFICE OUTPATIENT VISIT 15 MINUTES 06/02/2021 12:00:00 AM EDT MEDENT ([facility]) NEUROPLASTY &/TRANSPOS MEDIAN NRV CARPAL TUNNEL 2020 12:00:00 AM EDT MEDENT ([facility]) OFFICE OUTPATIENT VISIT 25 MINUTES 03/31/2021 12:00:00 AM EDT MEDENT ([facility]) Results ID Date Data Source CBC with Auto Differential 07/24/2021 12:00:00 AM EDT eCW1 ( [facility]) Name Value Range Interpretation Code Description Data Narda rce(s) Supporting Document(s) 9.7 4.0-10.0 WHITE BLOOD COUNT eCW1 ([facility]) 13.3 13.5-17.5 HEMOGLOBIN eCW1 ([facility]) 4.49 4.30-6.10 RED BLOOD COUNT eCW1 ([facility]) 41.8 42.0-52.0 HEMATOCRIT eCW1 ([facility]) 29.6 27.0-33.0 MEAN CORPUSCULAR HEMOGLOB IN eCW1 ([facility]) 93.1 80.0-96.0 MEAN CORPUSCULAR VOLUME e CW1 ([facility]) 12.3 11.5-14.5 RED CELL DISTRIBUTION WID TH eCW1 ([facility]) 422 150-450 PLATELET COUNT, AUTOMATED eCW1 ([facility]) 31.8 32.0-36.5 MEAN CORPUSCULAR HGB CONC eCW1 ([facility]) 15.3 24.0-44.0 LYMPH % eCW1 ([facility]) 8.2 2.0-8.0 MONO % eCW1 ([facility]) 2.1 0.0-3.0 EOS % eCW1 ([facility]) 73.6 36.0-66.0 NEUTROPHILS % eCW1 ([facility]) 0.6 0.0-1.0 BASO % eCW1 ([facility]) 0.2 0-3.0 IMMATURE GRANULOCYTE % eCW1 ([facility]) 0.0 0-0 NUCLEATED RED BLOOD CELL % eCW 1 ([facility]) 7.1 1.5-8.5 NEUTROPHILS # eCW1 ([facility]) 0.8 0.0-0.8 MONO # eCW1 ([facility]) 1.5 1.5-5.0 LYMPH # eCW1 ([facility]) 0.2 0.0-0.5 EOS # eCW1 ([facility]) 0.1 0.0-0.2 BASO # eCW1 ([facility]) ID Date Data Source LIPASE 07/24/2021 12:00:00 AM EDT eCW1 ([facility]) Name Value Range Interpretation Code Description Data Narda rce(s) Supporting Document(s) 155 73-393 LIPASE eCW1 ([facility]) ID Date Data Source Comprehensive Metabolic Profile (CMP) 07/24/2021 12:00:00 AM EDT eCW1 ([facility]) Name Value Range Interpretation Code Description Data Narda rce(s) Supporting Document(s) 0.89 0.70-1.30 CREATININE FOR GFR eCW1 ([facility]) 92 70-100 GLUCOSE, FASTING eCW1 ([facility]) 16 7-18 BLOOD UREA NITROGEN eCW1 ([facility]) 135 136-145 SODIUM LEVEL eCW1 ([facility]) > 60.0 >35 GLOMERULAR FILTRATION RATE eCW 1 ([facility]) 4.1 3.5-5.1 POTASSIUM SERUM eCW1 ([facility]) 29 21-32 CARBON DIOXIDE LEVEL eCW1 ([facility]) 99 98-107 CHLORIDE LEVEL eCW1 ([facility]) 40 12-78 ALT/SGPT eCW1 ([facility]) 24 7-37 AST/SGOT eCW1 ([facility]) 9.5 8.8-10.2 CALCIUM LEVEL eCW1 ([facility]) 0.6 0.2-1.0 BILIRUBIN,TOTAL eCW1 ([facility]) 106 45-117 ALKALINE PHOSPHATASE eCW1 ([facility]) 8.0 6.4-8.2 TOTAL PROTEIN eCW1 ([facility]) 4.3 3.2-5.2 ALBUMIN eCW1 ([facility]) 1.2 ALBUMIN/GLOBULIN RATIO eCW1 ([facility]) ID Date Data Source PLZ CHEST 2 VIEW 05/23/2021 12:00:00 AM EDT eCW1 ([facility]) Name Value Range Interpretation Code Description Data Narda rce(s) Supporting Document(s) PLZ CHEST 2 VIEW eCW1 ([facility]) Procedure Social History Code Duration Value Status Description Data Source(s ) Smoking 07/24/2021 12:00:00 AM EDT Never Smoker completed Never S moker eCW1 ([facility]) Smoking 07/24/2021 12:00:00 AM EDT Never Smoker completed Never S moker eCW1 ([facility]) Smoking 05/23/2021 12:00:00 AM EDT Never Smoker completed Never S moker eCW1 ([facility]) Smoking 11/21/2020 12:00:00 AM EST Never Smoker completed Never S moker eCW1 ([facility]) Smoking 11/21/2020 12:00:00 AM EST Never Smoker completed Never S moker eCW1 ([facility]) Smoking 11/21/2020 12:00:00 AM EST Never Smoker completed Never S moker eCW1 ([facility]) Vital Signs ID Date Data Source UNK Name Value Range Interpretation Code Description Data Source(s) Body temperature 98.1 [degF] 98.1 [degF] MEDENT ([facility]) Systolic blood pressure 111 mm[Hg] 111 mm[Hg] M EDENT ([facility]) Body height 64 [in_i] 64 [in_i] [facility] ([facility]) 5'4" Body weight 161.50 [lb_av] 161.50 [lb_av] MEDEN T ([facility]) Body mass index (BMI) [Ratio] 27.7 kg/m2 27.7 k g/m2 [facility] ([facility]) [place] body weight 130 [lb_av] 130 [lb_av] MEDEN T ([facility]) Body weight 73.256 kg 73.256 kg [facility] ([facility]) Body surface area Derived from formula 1.79 m2 1.79 m2 [facility] ([facility]) Diastolic blood pressure 77 mm[Hg] 77 mm[Hg] MEDENT ([facility]) Heart rate 80 /min 80 /min [facility] ([facility]) Body mass index (BMI) [Ratio] 27.12 kg/m2 27.12 kg/m2 eCW1 ([facility]) Heart rate 76 /min 76 /min eCW1 ([facility]) Respiratory rate 20 /min 20 /min eCW1 ([facility]) Body temperature 96.6 [degF] 96.6 [degF] eCW1 ( [facility]) Systolic blood pressure 120 mm[Hg] 120 mm[Hg] e CW1 ([facility]) Diastolic blood pressure 74 mm[Hg] 74 mm[Hg] eCW1 ([facility]) Body weight 158 [lb_av] 158 [lb_av] eCW1 ([facility]) Body weight 71.67 kg 71.67 kg eCW1 ([facility]) Body height 64 [in_i] 64 [in_i] eCW1 ([facility]) Body weight 159.2 [lb_av] 159.2 [lb_av] eCW1 ([facility]) Body temperature 97.2 [degF] 97.2 [degF] eCW1 ( [facility]) Systolic blood pressure 142 mm[Hg] 142 mm[Hg] e CW1 ([facility]) Diastolic blood pressure 76 mm[Hg] 76 mm[Hg] eCW1 ([facility]) Body height 64 [in_i] 64 [in_i] eCW1 ([facility]) Body mass index (BMI) [Ratio] 27.32 kg/m2 27.32 kg/m2 eCW1 ([facility]) Heart rate 85 /min 85 /min eCW1 ([facility]) Respiratory rate 20 /min 20 /min eCW1 ([facility]) Body temperature 97.1 [degF] 97.1 [degF] MEDENT ([facility]) Body temperature 97.1 [degF] 97.1 [degF] MEDENT ([facility]) Body height 64.25 [in_i] 64.25 [in_i] MEDENT ([facility]) 5'4.25" Body weight 160.00 [lb_av] 160.00 [lb_av] MEDEN T ([facility]) Body mass index (BMI) [Ratio] 27.2 kg/m2 27.2 k g/m2 MEDENT ([facility]) Body weight 154.4 [lb_av] 154.4 [lb_av] eCW1 ([facility]) Body height 64 [in_i] 64 [in_i] eCW1 ([facility]) Body mass index (BMI) [Ratio] 26.50 kg/m2 26.50 kg/m2 eCW1 ([facility]) Heart rate 85 /min 85 /min eCW1 ([facility]) Respiratory rate 20 /min 20 /min eCW1 ([facility]) Body temperature 97.8 [degF] 97.8 [degF] eCW1 ( [facility]) Systolic blood pressure 132 mm[Hg] 132 mm[Hg] e CW1 ([facility]) Diastolic blood pressure 84 mm[Hg] 84 mm[Hg] eCW1 ([facility]) Patient Treatment Plan of Care Planned Activity Planned Date Details Description Data Source (s) Amoxicillin 875 MG / Clavulanate 125 MG Oral Tablet 07/24/20 12:00:00 AM EDT eCW1 ([facility]) Amoxicillin 875 MG / Clavulanate 125 MG Oral Tablet 07/24/20 21 12:00:00 AM EDT eCW1 ([facility]) tiotropium 0.018 MG/ACTUAT Inhalant Powder [Spiriva] 021 12:00:00 AM EDT eCW1 ([facility]) Prednisone 20 MG Oral Tablet 05/23/2021 12:00:00 AM EDT eCW1 ([facility]) Fluticasone Propionate 50 MCG/ACT 11/22/2020 12:00:00 AM EST eCW1 ([facility]) Mometasone Furoate 0.1 % 11/22/2020 12:00:00 AM EST eCW1 ([facility]) Fluticasone Propionate 50 MCG/ACT 11/22/2020 12:00:00 AM EST eCW1 ([facility]) Mometasone Furoate 0.1 % 11/22/2020 12:00:00 AM EST eCW1 ([facility]) Fluticasone Propionate 50 MCG/ACT 11/22/2020 12:00:00 AM EST eCW1 ([facility]) Mometasone Furoate 0.1 % 11/22/2020 12:00:00 AM EST eCW1 ([facility]) Fluticasone Propionate 50 MCG/ACT 11/22/2020 12:00:00 AM EST eCW1 ([facility])
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
--- OUTSIDE RECORDS SUMMARY | 2021-10-23 09:49 | CCD | Continuity of Care Document ---
Author Author George CHARLES MD Organization Unknown Address [address] [facility] [address] [place] [address] Phone [phone] Care Team Providers Care Sharemilker Name Role Phone Nicole Robins P.A.-C AUTM [phone] Louis Aly M.D. AUTM [phone] Problems Active Problems Provider Date Essential hypertension Shon Charles JR, MD Onset: 08/02/20 21 Social History Type Date Description Comments Sex Unknown ETOH Use Denies alcohol use Tobacco Use Start: Unknown Denies Smoking Recreational Drug Use Denies Drug Use Allergies, Adverse Reactions, Alerts Active Allergies Criticality Reaction | Severity Comments Date Erythromycin Unable to assess criticality Dizziness, PASSED OUT 08/02/2021 Medications Active Medications SIG Qnty Indications Ordering Provide r Date Losartan Potassium/Hydrochlorothiazide 50-12.5mg Tablets 1 tab by mouth every day Unknown Atorvastatin Calcium 40mg Tablets 1/2 tab by mouth every day Unknown Aspirin 81mg Tablets DR Yenni berry Unknown Docusate Sodium 100mg Capsules 1 po in Am and 2 po in evening Unknown Immunizations Description No Information Available Vital Signs Date Vital Result Comment 08/07/2021 10:10am BP Systolic 111 mmHg BP Diastolic 77 mmHg Heart Rate 80 /min Body Temperature 98.1 F Height 64 inches 5'4" Weight 161.50 lb BMI (Body Mass Index) 27.7 kg/m2 [place] Body Weight 130 lb Weight 73.256 kg BSA (Body Surface Area) 1.79 m2 Results Description No Information Available Procedures Date Code Description Status 08/07/2021 06117 Office/Outpatient New Moderate M DM 45-59 Minutes Completed Medical Devices Description No Information Available Encounters Type Date Location Provider Dx Diagnosis Office Visit 08/07/2021 10:15a [facility] Shon mcgraw JR, MD K62.5 Hemorrhage of anus and rectum K59.00 Constipation, unspecified Assessments Date Code Description Provider 08/07/2021 K62.5 Hemorrhage of anus and rectum Laurence Charles JR, MD 08/07/2021 K59.00 Constipation, unspecified Shon Charles JR, MD Plan of Treatment Future Appointment(s):* 10/16/2021 9:30 am - SHASHI Eric at [facility] * 10/03/2021 1:30 pm - Shon Charles JR, MD at [facility] 08/07/2021 - Shon Charles JR, MD* K62.5 Hemorrhage of anus and rectum* Comments:* Patient has some bright red blood per rectum of etiology unknown at this point and the question obviously is whether this is hemorrhoid related or whether this is from a benign or malignant etiology I would recommend that we proceed with repeat colonoscopy understands the risks as well as benefits associated with this and would like to proceed with this as soon as possible. * K59.00 Constipation, unspecified* Comments:* We have discussed at length with the patient and stool softeners including Colace and Senokot as well as MiraLax. The expectations of treatment with these medications and dosages that can be used. Specifically with Colace up to 200 mg twice a day and with Senokot up to 2 tabs by mouth twice a day and with MiraLax up to one capful or 2 tablespoons 4 times a day . We have discussed the patient symptoms of constipation at length and specifically have discussed evaluation from a colonoscopy standpoint. We've discussed other options of the evaluation but would recommend a colonoscopy for the patient. We have discussed the risks as well as benefits associated with a colonoscopy those including and not limited to infection, bleeding, bowel perforation, missing a possible lesion or polyp or abnormality and difficulties with the sedation/anesthesia. The patient would like to proceed with colonoscopy as soon as possible and we will schedule this as soon as possible. Functional Status Description No Information Available Mental Status Description No Information Available Referrals Refer to Reason for Referral Status Appt Date Shon Charles JR, MD LOW ABD PAIN, SCHEDULE COLONOSCOPY Sched uled 08/07/2021 [address] [facility] [address] [place] [address] [phone]
--- OUTSIDE RECORDS SUMMARY | 2021-10-23 09:49 | CCD | Continuity of Care Document ---
Author Author George CHARLES MD Organization Unknown Address [address] [facility] [address] [place] [address] Phone [phone] Care Team Providers Care Value Engineer Name Role Phone Nicole Robins P.A.-C AUTM [phone] Louis Aly M.D. AUTM [phone] Problems Active Problems Provider Date Essential hypertension [...] lb BMI (Body Mass Index) 27.7 kg/m2 [place] Body Weight 130 lb Weight 73.256 kg BSA (Body Surface Area) 1.79 m2 Results Description No Information Available Procedures Description No Information Available Medical Devices Description No Information Available Encounters Description No Information Available Assessments Description No Information Available Plan of Treatment No Information Available Functional Status Description No Information Available Mental Status Description No Information Available Referrals Refer to Reason for Referral Status Appt Date Shon Charles JR, MD LOW ABD PAIN, SCHEDULE COLONOSCOPY Sched uled 08/07/[address] [place] [address] [phone]
--- OUTSIDE RECORDS SUMMARY | 2021-10-23 09:49 | CCD | Continuity of Care Document ---
Author Author George THAKKAR MD Organization Unknown Address [address] [place] [address], [address] [address] Phone [phone] Care Team Providers Care Grain Shipper Name Role Phone Louis Aly MD [facility] [phone] Problems Description No Information Available Social History Type Date Description Comments Sex Unknown ETOH Use Denies alcohol use Tobacco Use Start: Unknown Patient has never smoked Allergies and adverse reactions Description No Known Drug Allergies Medications Active Medications SIG Qnty Indications Ordering Provide r Date Losartan Potassium/Hydrochlorothiazide 50-12.5mg Tablets 1 by mouth every day Unknown Atorvastatin Calcium 40mg Tablets 1 by mouth every day Unknown Aspir-[address] 1 by mouth every day Unknown Advair Diskus 250-50mcg/Dose Aeros ol inhale one puff by mouth twice a day Unknown Shingrix 50mcg/0.5ML Suspension Rec Garland Awan MD Mometasone Furoate 0.1% Solution Louis Aly MD Fluticasone Propionate 50mcg/Act Suspension Usde 2 Sprays In Each Nostril Once A Day as Directed Unknown Buspirone HCL 15mg Tablets Louis Aly MD Flublok Quadrivalent 0.5ml Soln Prefill Syringe Louis Aly MD History Medications Tylenol With Codeine #3 300-30mg T ablets 1-2 tabs every 4-6 hours as needed For Post Op Pain. (Please DO Not Fill Until 04/11/21) 20tabs Dany Thakkar MD 04/05/2021 - 04/11/2021 Immunizations Description No Information Available Vital Signs Date Vital Result Comment 04/26/2021 3:15pm Body Temperature 97.1 F 03/31/2021 10:14am Body Temperature 97.1 F Height 64.25 inches 5'4.25" Weight 160.00 lb BMI (Body Mass Index) 27.2 kg/m2 Results Description No Information Available Procedures Date Code Description Status 06/02/2021 83462 Office/Outpatient Established Lo w MDM 20-29 Min Completed 04/11/2021 85601 Neuroplasty/Transposition, Media n Nerve At Carpal Tunnel Completed Medical Devices Description No Information Available Encounters Type Date Location Provider Dx Diagnosis Office Visit 06/02/2021 8:30a [place] Dany Thakkar MD Z48.811 Encntr for surgical aftcr fol surgery on the nervous sys G56.02 Carpal tunnel syndrome, left upper limb Office Visit 04/26/2021 3:00p [place] Walt Briggs MD Z4 8.811 Encntr for surgical aftcr fol surgery on the nervous sys G56.02 Carpal tunnel syndrome, left upper limb Assessments Date Code Description Provider 06/02/2021 Z48.811 Encounter for surgic al aftercare following surgery on the nervous system Dany Thakkar MD 06/02/2021 G56.02 Carpal tunnel syndrome, left upp er limb Dany Thakkar MD 04/26/2021 Z48.811 Encounter for surgic al aftercare following surgery on the nervous system Walt Briggs MD 04/26/2021 G56.02 Carpal tunnel syndrome, left upp er limb Walt Briggs MD 04/11/2021 G56.01 Carpal tunnel syndrome, right up per limb Dany Thakkar MD 04/11/2021 Z01.818 Encounter for other preprocedura l examination Dany Thakkar MD 04/11/2021 Z01.818 Encounter for other preprocedura l examination Lab 04/11/2021 Z20.828 Contact with and (fischer spected) exposure to other viral communicable diseases Dany Thakkar MD 04/11/2021 Z20.828 Contact with and (fischer spected) exposure to other viral communicable diseases Lab Plan of Treatment 06/02/2021 - Dany Thakkar MD* Z48.811 Encounter for surgical aftercare following surgery on the nervous system * G56.02 Carpal tunnel syndrome, left upper limb* Follow up:* prn Functional Status Description No Information Available Mental Status Description No Information Available Referrals Description No Information Available
[2021-10-23] MEDS ORDERED: DOCU100T8 PO (10:29)
[2021-10-23] MEDS ORDERED: NS 1,000 ML IV ONE (10:50)
--- NOTE | 2021-10-23 11:23 | ROOR ---
Patient Name: George Quick Procedure Date: 10/23/2021 10:56 AM Date of : 1940 Age: 81 Room: [facility] Gender: Male Note Status: Finalized Procedure: Colonoscopy Indications: Constipation Providers: Shon Charles Jr, MD Referring MD: Louis Aly MD Requesting Provider: Medicines: Propofol per Anesthesia Complications: No immediate complications. Procedure: Pre-Anesthesia Assessment: - Prior to the procedure, a History and Physical was performed, and patient medications and allergies were reviewed. The patient is competent. The risks and benefits of the procedure and the sedation options and risks were discussed with the patient. All questions were answered and informed consent was obtained. Patient identification and proposed procedure were verified by the physician and the nurse in the pre-procedure area and in the procedure room. Mental Status Examination: alert and oriented. Airway Examination: normal oropharyngeal airway and neck mobility. Respiratory Examination: clear to auscultation. CV Examination: normal. ASA Grade Assessment: II - A patient with mild systemic disease. After reviewing the risks and benefits, the patient was deemed in satisfactory condition to undergo the procedure. The anesthesia plan was to use moderate sedation / analgesia (conscious sedation). Immediately prior to administration of medications, the patient was re-assessed for adequacy to receive sedatives. The heart rate, respiratory rate, oxygen saturations, blood pressure, adequacy of pulmonary ventilation, and response to care were monitored throughout the procedure. The physical status of the patient was re-assessed after the procedure. The Colonoscope was introduced through the anus and advanced to the cecum, identified by appendiceal orifice and ileocecal valve. The colonoscopy was performed without difficulty. The patient tolerated the procedure well. The quality of the bowel preparation was adequate. Findings: The rectum, recto-sigmoid colon, descending colon, transverse colon, ascending colon, cecum, appendiceal orifice and ileocecal valve appeared normal. Multiple small and large-mouthed diverticula were found in the sigmoid colon. Impression: - The rectum, recto-sigmoid colon, descending colon, transverse colon, ascending colon, cecum, appendiceal orifice and ileocecal valve are normal. - Diverticulosis in the sigmoid colon. - No specimens collected. Recommendation: - Discharge patient to home (ambulatory). - Repeat colonoscopy in 10 years for screening purposes. Procedure Code(s): --- Professional --- 31887, Colonoscopy, flexible; diagnostic, including collection of specimen(s) by brushing or washing, when performed (separate procedure) Diagnosis Code(s): --- Professional --- K59.00, Constipation, unspecified K57.30, Diverticulosis of large intestine without perforation or abscess without bleeding CPT copyright 2019 [employer]. All rights reserved. The codes documented in this report are preliminary and upon mechanical systems designer review may be revised to meet current compliance requirements. Shon Charles MD Shon Charles Jr, MD 10/23/2021 11:23:31 AM Electronically signed by Shon Charles Jr, MD Number of Addenda: 0 Note Initiated On: 10/23/2021 10:56 AM Estimated Blood Loss: Estimated blood loss: none.
[2021-10-23 11:58] VITALS: BP 145/78
== END 2021-10-23 12:01 | disposition home or self-care (01) ==
LOC: M OPP 09:44
PROVIDERS: ATTEND Surgery
DX: K57.30 Diverticulosis of large intestine without perforation or abscess without bleeding (principal); K59.00 Constipation, unspecified; Z79.82 Long term (current) use of aspirin; Z79.899 Other long term (current) drug therapy; Z88.1 Allergy status to other antibiotic agents

== ENCOUNTER → 2021-11-22 | Outpatient (CLI) | payer MEDICARE, MEDICAID ==
[~2021-11-22] MED LIST changes: +DOCU100T8 PO; -LIDOCAINE 2% 100MG/5ML SDV (FOR ANES.) As Ordered ONE; -propofoL 200 MG/20 ML VIAL As Ordered ONE
[2021-11-22 12:04] LABS: ALBUMIN 4.2 GM/DL (3.2-5.2); ALT/SGPT 31 U/L (12-78); BILIRUBIN,TOTAL 0.5 MG/DL (0.2-1.0); BLOOD UREA NITROGEN 19 MG/DL (7-18); CALCIUM LEVEL 9.4 MG/DL (8.8-10.2); CARBON DIOXIDE LEVEL 29 MEQ/L (21-32); CHLORIDE LEVEL 101 MEQ/L (98-107); CHOLESTEROL LEVEL 134 MG/DL (<200); CHOLESTEROL RISK RATIO 2.977 (<5); CREATININE FOR GFR 0.92 MG/DL (0.70-1.30); GLOMERULAR FILTRATION RATE > 60.0 (>35); GLUCOSE, FASTING 97 MG/DL (70-100); HDL CHOLESTEROL 45 MG/DL (>40); LDL CHOLESTEROL 58 MG/DL (<100); NON-HDL-C 89 MG/DL; POTASSIUM SERUM 4.4 MEQ/L (3.5-5.1); SODIUM LEVEL 137 MEQ/L (136-145); TOTAL PROTEIN 7.5 GM/DL (6.4-8.2); TRIGLYCERIDES LEVEL 157 MG/DL (<150)
== END ==
LOC: M PLALAB 08:33
PROVIDERS: ATTEND Internal Medicine
DX: E78.00 Pure hypercholesterolemia, unspecified (principal); I10 Essential (primary) hypertension
CPT/HCPCS: 36415; 80053; 80061; G0463

== ENCOUNTER → 2022-05-21 | Outpatient (CLI) | payer MEDICARE, MEDICAID ==
[2022-05-21 11:11] LABS: BASO # 0.1 10^3/uL (0.0-0.2); BASO % 0.9 % (0.0-1.0); EOS # 0.6 10^3/uL (0.0-0.5); EOS % 6.4 % (0.0-3.0); HEMATOCRIT 38.9 % (42.0-52.0); HEMOGLOBIN 12.6 g/dl (13.5-17.5); LYMPH # 1.8 10^3/uL (1.5-5.0); LYMPH % 20.9 % (24.0-44.0); MEAN CORPUSCULAR HEMOGLOBIN 30.2 pg (27.0-33.0); MEAN CORPUSCULAR HGB CONC 32.4 g/dl (32.0-36.5); MEAN CORPUSCULAR VOLUME 93.3 fl (80.0-96.0); MONO # 0.9 10^3/uL (0.0-0.8); MONO % 10.4 % (2.0-8.0); NEUTROPHILS # 5.3 10^3/uL (1.5-8.5); NEUTROPHILS % 61.1 % (36.0-66.0); PLATELET COUNT, AUTOMATED 371 10^3/uL (150-450); RED BLOOD COUNT 4.17 10^6/uL (4.30-6.10); WHITE BLOOD COUNT 8.7 10^3/uL (4.0-10.0)
[2022-05-21 14:27] LABS: ALBUMIN 4.3 GM/DL (3.2-5.2); ALT/SGPT 30 U/L (12-78); BILIRUBIN,TOTAL 0.6 MG/DL (0.2-1.0); BLOOD UREA NITROGEN 22 MG/DL (7-18); CALCIUM LEVEL 9.3 MG/DL (8.8-10.2); CARBON DIOXIDE LEVEL 29 MEQ/L (21-32); CHLORIDE LEVEL 103 MEQ/L (98-107); CHOLESTEROL LEVEL 157 MG/DL (<200); CHOLESTEROL RISK RATIO 3.829 (<5); CREATININE FOR GFR 0.97 MG/DL (0.70-1.30); GLOMERULAR FILTRATION RATE > 60.0 (>35); GLUCOSE, FASTING 103 MG/DL (70-100); HDL CHOLESTEROL 41 MG/DL (>40); LDL CHOLESTEROL 83 MG/DL (<100); MAGNESIUM LEVEL 2.2 MG/DL (1.8-2.4); NON-HDL-C 116 MG/DL; POTASSIUM SERUM 3.9 MEQ/L (3.5-5.1); SODIUM LEVEL 136 MEQ/L (136-145); TOTAL PROTEIN 7.7 GM/DL (6.4-8.2); TRIGLYCERIDES LEVEL 166 MG/DL (<150)
== END ==
LOC: M PLALAB 07:08
PROVIDERS: ATTEND Internal Medicine
DX: E78.00 Pure hypercholesterolemia, unspecified (principal); I10 Essential (primary) hypertension; D64.9 Anemia, unspecified

== ENCOUNTER → 2022-06-21 | Outpatient (CLI) | payer MEDICARE, MEDICAID | LOC: M PLAIMG 10:04 | PROVIDERS: ATTEND Physician Assistant | DX: R10.84 Generalized abdominal pain (principal); K59.00 Constipation, unspecified; Z87.19 Personal history of other diseases of the digestive system | CPT/HCPCS: 74018; G0463 ==

== ENCOUNTER → 2022-11-19 | Outpatient (CLI) | payer MEDICARE, MEDICAID ==
[~2022-11-19] MED LIST changes: +ISOVUE-300 61% 50ML VIAL ONE; +LIDOCAINE 1% MDV 20ML VIAL ONE; +methylPREDNISolone SUSP 40MG/ML 1ML VIAL (DEPO MEDROL) ONE
== END ==
LOC: M PLAIMG 12:29
PROVIDERS: ATTEND Physician Assistant Surgical
DX: M19.011 Primary osteoarthritis, right shoulder (principal)
CPT/HCPCS: 20610; 76000; Q9967

== ENCOUNTER → 2022-12-03 | Outpatient (CLI) | payer MEDICARE, MEDICAID ==
[~2022-12-03] MED LIST changes: -ISOVUE-300 61% 50ML VIAL ONE; -LIDOCAINE 1% MDV 20ML VIAL ONE; -methylPREDNISolone SUSP 40MG/ML 1ML VIAL (DEPO MEDROL) ONE
[2022-12-03 12:10] LABS: HEMATOCRIT 39.8 % (42.0-52.0); MEAN CORPUSCULAR HEMOGLOBIN 30.4 pg (27.0-33.0); MEAN CORPUSCULAR HGB CONC 32.7 g/dl (32.0-36.5); MEAN CORPUSCULAR VOLUME 93.2 fl (80.0-96.0); PLATELET COUNT, AUTOMATED 343 10^3/uL (150-450); RED BLOOD COUNT 4.27 10^6/uL (4.30-6.10); WHITE BLOOD COUNT 10.5 10^3/uL (4.0-10.0)
[2022-12-03 12:24] LABS: HEMOGLOBIN A1c 5.9 % (4.0-6.0)
[2022-12-03 12:36] LABS: C REACTIVE PROTEIN QUANTITATIV < 0.40 MG/DL (<1.0)
[2022-12-03 12:38] LABS: MAU/CREAT RATIO 18.9 MCG/MG (0.0-30.0)
[2022-12-03 12:41] LABS: ALBUMIN 4.2 G/DL (3.2-5.2); ALKALINE PHOSPHATASE 70 U/L (46-116); ALT/SGPT 32 U/L (7.0-40); AST/SGOT 22 U/L (<34); BILIRUBIN,TOTAL 0.7 MG/DL (0.3-1.2); BLOOD UREA NITROGEN 24 MG/DL (9-23); CALCIUM LEVEL 8.9 MG/DL (8.3-10.6); CARBON DIOXIDE LEVEL 28 MMOL/L (20-31); CHLORIDE LEVEL 100 MMOL/L (98-107); CHOLESTEROL LEVEL 153 MG/DL (<200); CHOLESTEROL RISK RATIO 3.46 (<5); CREATININE FOR GFR 0.91 MG/DL (0.70-1.30); FREE T4 1.13 NG/DL (0.89-1.76); GLOMERULAR FILTRATION RATE > 60.0 (>35); GLUCOSE, FASTING 96 MG/DL (74-106); HDL CHOLESTEROL 44.1 MG/DL (>40); LDL CHOLESTEROL 77.1 MG/DL (<100); NON-HDL-C 109 MG/DL; SODIUM LEVEL 137 MMOL/L (136-145); THYROID STIMULATING HORMONE 4.193 uIU/ML (0.55-4.78); TOTAL 25(OH) VITAMIN D 47.6 NG/ML (20.0-100.0); TOTAL PROTEIN 7.6 G/DL (5.7-8.2); TRIGLYCERIDES LEVEL 159 MG/DL (<150); VITAMIN B12 LEVEL 288 PG/ML (211-911)
== END ==
LOC: M PLALAB 08:16
PROVIDERS: ATTEND Internal Medicine Hematology
DX: I10 Essential (primary) hypertension (principal); Z12.5 Encounter for screening for malignant neoplasm of prostate; Z79.899 Other long term (current) drug therapy
CPT/HCPCS: 36415; 80053; 80061; 82043; 82306; 82607; 83036; 84439; 84443; 85027; 86140; G0103

== ENCOUNTER → 2023-04-03 | Outpatient (CLI) | payer MEDICARE, MEDICAID ==
[~2023-04-03] MED LIST changes: +ISOVUE-300 61% 100ML VIAL ONE; +LIDOCAINE 1% MDV 20ML VIAL ONE; +methylPREDNISolone SUSP 40MG/ML 1ML VIAL (DEPO MEDROL) ONE
== END ==
LOC: M PLAIMG 13:33
PROVIDERS: ATTEND Physician Assistant Surgical
DX: M19.011 Primary osteoarthritis, right shoulder (principal); M19.012 Primary osteoarthritis, left shoulder
CPT/HCPCS: 20610; 77002; J1030; Q9967

== ENCOUNTER → 2023-09-03 | Outpatient (CLI) | payer MEDICARE, MEDICAID ==
[~2023-09-03] MED LIST changes: -ISOVUE-300 61% 100ML VIAL ONE; -LIDOCAINE 1% MDV 20ML VIAL ONE; -methylPREDNISolone SUSP 40MG/ML 1ML VIAL (DEPO MEDROL) ONE
[2023-09-03 11:07] LABS: HEMATOCRIT 37.6 % (42.0-52.0); HEMOGLOBIN 12.7 g/dl (13.5-17.5); MEAN CORPUSCULAR HEMOGLOBIN 30.8 pg (27.0-33.0); MEAN CORPUSCULAR HGB CONC 33.8 g/dl (32.0-36.5); PLATELET COUNT, AUTOMATED 358 10^3/uL (150-450); RED BLOOD COUNT 4.13 10^6/uL (4.30-6.10); WHITE BLOOD COUNT 8.1 10^3/uL (4.0-10.0)
[2023-09-03 11:28] LABS: HEMOGLOBIN A1c 5.5 % (4.0-6.0)
[2023-09-03 11:29] LABS: C REACTIVE PROTEIN QUANTITATIV < 0.40 MG/DL (<1.0)
[2023-09-03 11:32] LABS: CREATININE, URINE 139.1 MG/DL
[2023-09-03 11:33] LABS: MAU/CREAT RATIO 40.2 MCG/MG (0.0-30.0)
[2023-09-03 11:34] LABS: ALBUMIN 4.1 G/DL (3.2-5.2); ALKALINE PHOSPHATASE 66 U/L (46-116); ALT/SGPT 25 U/L (7.0-40); AST/SGOT 16 U/L (<34); BILIRUBIN,TOTAL 0.6 MG/DL (0.3-1.2); BLOOD UREA NITROGEN 22 MG/DL (9-23); CALCIUM LEVEL 9.1 MG/DL (8.3-10.6); CARBON DIOXIDE LEVEL 29 MMOL/L (20-31); CHLORIDE LEVEL 100 MMOL/L (98-107); CHOLESTEROL LEVEL 202 MG/DL (<200); CHOLESTEROL RISK RATIO 4.21 (<5); CREATININE FOR GFR 0.83 MG/DL (0.70-1.30); FREE T4 1.13 NG/DL (0.89-1.76); GLOMERULAR FILTRATION RATE > 60.0 (>35); GLUCOSE, FASTING 87 MG/DL (74-106); HDL CHOLESTEROL 47.9 MG/DL (>40); LDL CHOLESTEROL 119.5 MG/DL (<100); NON-HDL-C 154.1 MG/DL; SODIUM LEVEL 136 MMOL/L (136-145); THYROID STIMULATING HORMONE 4.319 uIU/ML (0.55-4.78); TOTAL 25(OH) VITAMIN D 60.1 NG/ML (20.0-100.0); TOTAL PROTEIN 7.2 G/DL (5.7-8.2); TRIGLYCERIDES LEVEL 173 MG/DL (<150); VITAMIN B12 LEVEL 344 PG/ML (211-911)
== END ==
LOC: M PLALAB 08:24
PROVIDERS: ATTEND Internal Medicine Hematology
DX: I10 Essential (primary) hypertension (principal); Z79.899 Other long term (current) drug therapy; Z12.5 Encounter for screening for malignant neoplasm of prostate
CPT/HCPCS: 36415; 80053; 80061; 82043; 82306; 82607; 83036; 83525; 84439; 84443; 85027; 86140; G0103

== ENCOUNTER → 2023-09-06 | Outpatient (CLI) | payer MEDICARE, MEDICAID ==
[~2023-09-06] MED LIST changes: +ISOVUE-370 76% 100ML VIAL ONE
== END ==
LOC: M PLAIMG 12:01
PROVIDERS: ATTEND Internal Medicine Hematology
DX: R93.89 Abnormal findings on diagnostic imaging of other specified body structures (principal)
CPT/HCPCS: 71270; Q9967

== ENCOUNTER → 2023-10-01 | Outpatient (CLI) | payer MEDICARE, MEDICAID ==
[~2023-10-01] MED LIST changes: -ISOVUE-370 76% 100ML VIAL ONE
== END ==
LOC: M RAD 09:13
PROVIDERS: ATTEND Internal Medicine Hematology
DX: R93.89 Abnormal findings on diagnostic imaging of other specified body structures (principal)

== ENCOUNTER → 2023-12-02 | Outpatient (CLI) | payer MEDICARE, MEDICAID ==
[2023-12-02 10:03] LABS: BASO # 0.1 10^3/uL (0.0-0.2); EOS # 0.5 10^3/uL (0.0-0.5); EOS % 5.7 % (0.0-3.0); HEMATOCRIT 38.9 % (42.0-52.0); HEMOGLOBIN 12.7 g/dl (13.5-17.5); LYMPH # 1.6 10^3/uL (1.5-5.0); LYMPH % 20.4 % (24.0-44.0); MEAN CORPUSCULAR HGB CONC 32.6 g/dl (32.0-36.5); MONO # 0.8 10^3/uL (0.0-0.8); MONO % 9.9 % (2.0-8.0); NEUTROPHILS % 62.8 % (36.0-66.0); PLATELET COUNT, AUTOMATED 364 10^3/uL (150-450); RED BLOOD COUNT 4.23 10^6/uL (4.30-6.10)
[2023-12-02 10:27] LABS: ALBUMIN 4.3 G/DL (3.2-5.2); ALKALINE PHOSPHATASE 62 U/L (46-116); ALT/SGPT 26 U/L (7.0-40); AST/SGOT 16 U/L (<34); BILIRUBIN,TOTAL 0.6 MG/DL (0.3-1.2); BLOOD UREA NITROGEN 20 MG/DL (9-23); CALCIUM LEVEL 9.7 MG/DL (8.3-10.6); CARBON DIOXIDE LEVEL 29 MMOL/L (20-31); CHLORIDE LEVEL 101 MMOL/L (98-107); CHOLESTEROL LEVEL 171 MG/DL (<200); CHOLESTEROL RISK RATIO 4.14 (<5); CREATININE FOR GFR 0.96 MG/DL (0.70-1.30); GLOMERULAR FILTRATION RATE > 60.0 (>35); GLUCOSE, FASTING 100 MG/DL (74-106); HDL CHOLESTEROL 41.3 MG/DL (>40); IRON (FE) 88 UG/DL (65-175); LDL CHOLESTEROL 88.3 MG/DL (<100); NON-HDL-C 129.7 MG/DL; POTASSIUM SERUM 3.9 MMOL/L (3.5-5.1); SODIUM LEVEL 135 MMOL/L (136-145); TOTAL PROTEIN 7.8 G/DL (5.7-8.2); TRIGLYCERIDES LEVEL 207 MG/DL (<150)
== END ==
LOC: M PLALAB 08:49
PROVIDERS: ATTEND Internal Medicine Hematology
DX: D64.9 Anemia, unspecified (principal); E78.2 Mixed hyperlipidemia

== ENCOUNTER 2024-05-14 18:44 | Emergency (ER) | payer MEDICARE, MEDICAID ==
[~2024-05-14] VITALS: Ht 160 cm; Wt 75.3 kg
[2024-05-14] MEDS ORDERED: TAMS1CAP17 (19:03)
[2024-05-14 19:32] LABS: BASO # 0.1 10^3/uL (0.0-0.2); BASO % 0.9 % (0.0-1.0); EOS # 0.4 10^3/uL (0.0-0.5); EOS % 3.6 % (0.0-3.0); HEMATOCRIT 38.2 % (42.0-52.0); LYMPH # 1.7 10^3/uL (1.5-5.0); LYMPH % 16.2 % (24.0-44.0); MEAN CORPUSCULAR HEMOGLOBIN 31.1 pg (27.0-33.0); MEAN CORPUSCULAR VOLUME 91.4 fl (80.0-96.0); MONO % 9.3 % (2.0-8.0); NEUTROPHILS # 7.3 10^3/uL (1.5-8.5); NEUTROPHILS % 69.7 % (36.0-66.0); PLATELET COUNT, AUTOMATED 373 10^3/uL (150-450); RED BLOOD COUNT 4.18 10^6/uL (4.30-6.10); WHITE BLOOD COUNT 10.5 10^3/uL (4.0-10.0)
[2024-05-14 19:53] LABS: INR 1.02; PARTIAL THROMBOPLASTIN TIME 29.7 SECONDS (24.8-34.2); PROTHROMBIN TIME 13.1 SECONDS (12.5-14.5)
[2024-05-14 19:55] LABS: LIPASE 42 U/L (12-53)
[2024-05-14 19:57] LABS: ALBUMIN 4.6 G/DL (3.2-5.2); ALKALINE PHOSPHATASE 73 U/L (46-116); ALT/SGPT 35 U/L (7.0-40); AST/SGOT 17 U/L (<34); BILIRUBIN,DIRECT 0.1 MG/DL (<0.4); BILIRUBIN,TOTAL 0.5 MG/DL (0.3-1.2); BLOOD UREA NITROGEN 23 MG/DL (9-23); CALCIUM LEVEL 10.3 MG/DL (8.3-10.6); CARBON DIOXIDE LEVEL 28 MMOL/L (20-31); CHLORIDE LEVEL 102 MMOL/L (98-107); CREATININE FOR GFR 0.86 MG/DL (0.70-1.30); GLOMERULAR FILTRATION RATE > 60.0 (>35); GLUCOSE, FASTING 116 MG/DL (74-106); POTASSIUM SERUM 3.6 MMOL/L (3.5-5.1); SODIUM LEVEL 136 MMOL/L (136-145); TOTAL PROTEIN 7.7 G/DL (5.7-8.2)
[2024-05-14] MEDS ORDERED: ISOVUE-370 76% 100ML VIAL As Ordered ONE (20:02)
[2024-05-14] MEDS ORDERED: CEFU50TA PO (21:31)
[2024-05-14] MEDS: CEFUROXIME 500 MG TAB PO ONE (21:47)
[2024-05-14 21:49] VITALS: BP 174/81; TEMP 97.4; O2SAT 95
== END 2024-05-14 22:06 | disposition home or self-care (01) ==
LOC: M ED 18:44
DX: N30.01 Acute cystitis with hematuria (principal); K76.0 Fatty (change of) liver, not elsewhere classified; K76.89 Other specified diseases of liver; K57.30 Diverticulosis of large intestine without perforation or abscess without bleeding; N40.1 Benign prostatic hyperplasia with lower urinary tract symptoms; M43.16 Spondylolisthesis, lumbar region; M48.061 Spinal stenosis, lumbar region without neurogenic claudication; K40.90 Unilateral inguinal hernia, without obstruction or gangrene, not specified as recurrent; I10 Essential (primary) hypertension; E78.5 Hyperlipidemia, unspecified; J67.0 Farmer's lung; Z79.02 Long term (current) use of antithrombotics/antiplatelets; Z79.811 Long term (current) use of aromatase inhibitors; Z79.899 Other long term (current) drug therapy
CPT/HCPCS: 36415; 74177; 80048; 80076; 81000; 81015; 83690; 85025; 85610; 85730; 86850; 86900; 86901; 87086; 99284; Q9967

== ENCOUNTER → 2024-05-26 | Outpatient (CLI) | payer MEDICARE, MEDICAID ==
[~2024-05-26] MED LIST changes: +CEFU50TA PO; +TAMS1CAP17
== END ==
LOC: M PLALAB 08:23
PROVIDERS: ATTEND Internal Medicine Hematology
DX: Z12.5 Encounter for screening for malignant neoplasm of prostate (principal)
CPT/HCPCS: 36415; G0103

== ENCOUNTER → 2024-05-28 | Outpatient (CLI) | payer MEDICARE ==
[2024-05-28 10:57] LABS: BASO # 0.1 10^3/uL (0.0-0.2); BASO % 0.9 % (0.0-1.0); EOS # 0.5 10^3/uL (0.0-0.5); EOS % 6.1 % (0.0-3.0); HEMATOCRIT 35.9 % (42.0-52.0); HEMOGLOBIN 11.6 g/dl (13.5-17.5); LYMPH # 1.4 10^3/uL (1.5-5.0); LYMPH % 17.9 % (24.0-44.0); MEAN CORPUSCULAR HEMOGLOBIN 30.4 pg (27.0-33.0); MEAN CORPUSCULAR HGB CONC 32.3 g/dl (32.0-36.5); MONO # 1.1 10^3/uL (0.0-0.8); NEUTROPHILS # 4.6 10^3/uL (1.5-8.5); NEUTROPHILS % 60.8 % (36.0-66.0); PLATELET COUNT, AUTOMATED 341 10^3/uL (150-450); RED BLOOD COUNT 3.82 10^6/uL (4.30-6.10); WHITE BLOOD COUNT 7.6 10^3/uL (4.0-10.0)
[2024-05-28 11:10] LABS: HEMOGLOBIN A1c 5.9 % (4.0-6.0)
[2024-05-28 11:17] LABS: CREATININE, URINE 60.2 MG/DL
[2024-05-28 11:18] LABS: MAU/CREAT RATIO 84.7 MCG/MG (0.0-30.0)
[2024-05-28 11:20] LABS: THYROID STIMULATING HORMONE 2.619 uIU/ML (0.55-4.78)
[2024-05-28 11:21] LABS: C REACTIVE PROTEIN QUANTITATIV < 0.40 MG/DL (<1.0)
[2024-05-28 11:23] LABS: ALBUMIN 4.1 G/DL (3.2-5.2); ALKALINE PHOSPHATASE 66 U/L (46-116); ALT/SGPT 23 U/L (7.0-40); AST/SGOT 13 U/L (<34); BILIRUBIN,TOTAL 0.6 MG/DL (0.3-1.2); BLOOD UREA NITROGEN 20 MG/DL (9-23); CALCIUM LEVEL 9.3 MG/DL (8.3-10.6); CARBON DIOXIDE LEVEL 28 MMOL/L (20-31); CHLORIDE LEVEL 104 MMOL/L (98-107); CHOLESTEROL LEVEL 150 MG/DL (<200); CHOLESTEROL RISK RATIO 4.27 (<5); CREATININE FOR GFR 0.88 MG/DL (0.70-1.30); GLOMERULAR FILTRATION RATE > 60.0 (>35); GLUCOSE, FASTING 91 MG/DL (74-106); HDL CHOLESTEROL 35.1 MG/DL (>40); LDL CHOLESTEROL 76.1 MG/DL (<100); NON-HDL-C 114.9 MG/DL; POTASSIUM SERUM 3.8 MMOL/L (3.5-5.1); SODIUM LEVEL 138 MMOL/L (136-145); TRIGLYCERIDES LEVEL 194 MG/DL (<150)
[2024-05-28 11:24] LABS: VITAMIN B12 LEVEL 389 PG/ML (211-911)
== END ==
LOC: M PLALAB 08:34
PROVIDERS: ATTEND Internal Medicine Hematology
DX: Z00.00 Encounter for general adult medical examination without abnormal findings (principal); Z79.899 Other long term (current) drug therapy

== ENCOUNTER → 2024-06-15 | Outpatient (CLI) | payer MEDICARE, MEDICAID ==
[~2024-06-15] MED LIST changes: +COLA100C5 PO; +FINA5TAB2 PO; +FLUT1BLS5; +PRES10CA2 PO; +PREVAGEN; +RA T500C2 PO; -TAMS1CAP17; +TAMS1CAP17 PO
== END ==
LOC: M PLAIMG 08:06
PROVIDERS: ATTEND Urology
DX: Z01.818 Encounter for other preprocedural examination (principal); N32.89 Other specified disorders of bladder; N39.0 Urinary tract infection, site not specified

== ENCOUNTER 2024-06-19 07:25 | Day surgery (SDC) | payer MEDICARE, MEDICAID ==
[~2024-06-19] VITALS: Ht 154.9 cm; Wt 74.4 kg
[2024-06-19] MEDS ORDERED: SUGAMMADEX SODIUM 500 MG/5 ML VIAL (BRIDION) As Ordered ONE (08:02)
[2024-06-19] MEDS ORDERED: ROCURONIUM BROMIDE 50MG/5ML VIAL As Ordered ONE (08:02)
[2024-06-19] MEDS ORDERED: ACETAMINOPHEN 1000MG 100ML IV BAG As Ordered ONE (08:02)
[2024-06-19] MEDS ORDERED: ONDANSETRON 4MG 2ML VIAL As Ordered ONE (08:02)
[2024-06-19] MEDS ORDERED: LIDOCAINE 2% 100MG/5ML SDV (FOR ANES.) As Ordered ONE (08:02)
[2024-06-19] MEDS ORDERED: propofoL 200 MG/20 ML VIAL As Ordered ONE (08:02)
[2024-06-19] MEDS ORDERED: fentaNYL 100 MCG/2 ML INJECTION As Ordered ONE (08:02)
[2024-06-19] MEDS: ceFAZolin SOD 2 GM in IV 1 EA IV ONE (10:10)
[2024-06-19] MEDS: LR 1,000 ML IV SCH (10:20)
[2024-06-19] MEDS ORDERED: ePHEDrine SULFATE 25 MG/5 ML(5MG/ML) SYRINGE As Ordered ONE (10:27)
[2024-06-19] MEDS: ISOVUE-300 61% 100ML VIAL As Ordered ONE (11:50)
[2024-06-19] MEDS ORDERED: FUROSEMIDE 100MG/10ML VIAL As Ordered ONE (11:52)
[2024-06-19] MEDS ORDERED: ONDANSETRON 4MG 2ML VIAL IV PRN (12:00)
[2024-06-19] MEDS ORDERED: fentaNYL 100 MCG/2 ML INJECTION IV PRN (12:00)
[2024-06-19] MEDS ORDERED: LR 1,000 ML IV SCH (12:00)
[2024-06-19] MEDS ORDERED: ACETAMINOPHEN TAB 650MG DOSE (2X325MG) PO PRN (12:20)
[2024-06-19] MEDS ORDERED: CIPR-249 PO (12:46)
[2024-06-19 15:43] VITALS: BP 152/73; TEMP 97.6; O2SAT 96
== END 2024-06-19 15:53 | disposition home or self-care (01) ==
LOC: M SDC 07:25
PROVIDERS: ATTEND Urology
DX: C67.8 Malignant neoplasm of overlapping sites of bladder (principal); R31.0 Gross hematuria; J45.909 Unspecified asthma, uncomplicated; E78.00 Pure hypercholesterolemia, unspecified; Z79.899 Other long term (current) drug therapy; Z86.010 Personal history of colon polyps; Z90.49 Acquired absence of other specified parts of digestive tract; Z88.8 Allergy status to other drugs, medicaments and biological substances
CPT/HCPCS: 52240; 52332; 76000; 88307; C1769; C2617; J0131; J0690; J1940; J2405; J3010; Q9967

== ENCOUNTER → 2024-08-10 | Outpatient (CLI) | payer MEDICARE, MEDICAID ==
[~2024-08-10] MED LIST changes: +CIPR-249 PO
[2024-08-10 10:50] LABS: HEMATOCRIT 38.2 % (42.0-52.0); HEMOGLOBIN 12.6 g/dl (13.5-17.5); MEAN CORPUSCULAR HEMOGLOBIN 30.8 pg (27.0-33.0); MEAN CORPUSCULAR VOLUME 93.4 fl (80.0-96.0); PLATELET COUNT, AUTOMATED 380 10^3/uL (150-450); RED BLOOD COUNT 4.09 10^6/uL (4.30-6.10); WHITE BLOOD COUNT 9.9 10^3/uL (4.0-10.0)
[2024-08-10 10:52] LABS: APPEARANCE, URINE HAZY (CLEAR); BACTERIA, URINE AUTO NEGATIVE (NEGATIVE); BILIRUBIN, URINE AUTO NEGATIVE (NEGATIVE); BLOOD, URINE BLOOD NEGATIVE (NEGATIVE); COLOR, URINE YELLOW (YELLOW); GLUCOSE, URINE (UA) AUTO NEGATIVE (NEGATIVE); KETONE, URINE AUTO NEGATIVE (NEGATIVE); LEUKOCYTE ESTERASE, URINE AUTO 1+ (NEGATIVE); MUCUS, URINE SMALL (NEGATIVE); NITRITE, URINE AUTO NEGATIVE (NEGATIVE); PROTEIN, URINE AUTO NEGATIVE (NEGATIVE); RBC, URINE AUTO 3 /HPF (0-3); SPECIFIC GRAVITY URINE AUTO 1.017 (1.002-1.035); SQUAMOUS EPITHELIAL CELL UR AU 0 /HPF (0-6); UROBILINOGEN, URINE AUTO 0.2 mg/dL (0.0-2.0); WBC, URINE AUTO 42 /HPF (0-3)
[2024-08-10 10:54] LABS: ALKALINE PHOSPHATASE 85 U/L (46-116); ALT/SGPT 23 U/L (7.0-40); AST/SGOT 15 U/L (<34); BILIRUBIN,TOTAL 0.5 MG/DL (0.3-1.2); BLOOD UREA NITROGEN 16 MG/DL (9-23); CALCIUM LEVEL 9.5 MG/DL (8.3-10.6); CARBON DIOXIDE LEVEL 29 MMOL/L (20-31); CHLORIDE LEVEL 103 MMOL/L (98-107); CREATININE FOR GFR 0.88 MG/DL (0.70-1.30); GLOMERULAR FILTRATION RATE > 60.0 (>35); GLUCOSE, FASTING 95 MG/DL (74-106); POTASSIUM SERUM 3.9 MMOL/L (3.5-5.1); SODIUM LEVEL 137 MMOL/L (136-145); TOTAL PROTEIN 7.5 G/DL (5.7-8.2)
== END ==
LOC: M PLALAB 08:20
PROVIDERS: ATTEND Urology
DX: C67.9 Malignant neoplasm of bladder, unspecified (principal)

== ENCOUNTER → 2024-08-17 | Outpatient (REF) | payer MEDICARE, MEDICAID ==
[2024-08-17 14:27] LABS: APPEARANCE, URINE HAZY (CLEAR); BACTERIA, URINE AUTO 2+ (NEGATIVE); BILIRUBIN, URINE AUTO NEGATIVE (NEGATIVE); BLOOD, URINE BLOOD NEGATIVE (NEGATIVE); COLOR, URINE YELLOW (YELLOW); GLUCOSE, URINE (UA) AUTO NEGATIVE (NEGATIVE); KETONE, URINE AUTO NEGATIVE (NEGATIVE); LEUKOCYTE ESTERASE, URINE AUTO 3+ (NEGATIVE); NITRITE, URINE AUTO NEGATIVE (NEGATIVE); PROTEIN, URINE AUTO NEGATIVE (NEGATIVE); RBC, URINE AUTO 0 /HPF (0-3); SPECIFIC GRAVITY URINE AUTO 1.013 (1.002-1.035); SQUAMOUS EPITHELIAL CELL UR AU 0 /HPF (0-6); UROBILINOGEN, URINE AUTO 0.2 mg/dL (0.0-2.0); WBC, URINE AUTO 163 /HPF (0-3)
== END ==
LOC: M SMT 13:20
PROVIDERS: ATTEND Urology
DX: C67.9 Malignant neoplasm of bladder, unspecified (principal)

== ENCOUNTER → 2024-08-24 | Outpatient (REF) | payer MEDICARE, MEDICAID ==
[2024-08-24 14:28] LABS: APPEARANCE, URINE CLEAR (CLEAR); BACTERIA, URINE AUTO 1+ (NEGATIVE); BILIRUBIN, URINE AUTO NEGATIVE (NEGATIVE); BLOOD, URINE BLOOD NEGATIVE (NEGATIVE); COLOR, URINE YELLOW (YELLOW); GLUCOSE, URINE (UA) AUTO NEGATIVE (NEGATIVE); KETONE, URINE AUTO NEGATIVE (NEGATIVE); LEUKOCYTE ESTERASE, URINE AUTO 2+ (NEGATIVE); MUCUS, URINE SMALL (NEGATIVE); NITRITE, URINE AUTO NEGATIVE (NEGATIVE); PROTEIN, URINE AUTO NEGATIVE (NEGATIVE); RBC, URINE AUTO 3 /HPF (0-3); SPECIFIC GRAVITY URINE AUTO 1.015 (1.002-1.035); SQUAMOUS EPITHELIAL CELL UR AU 0 /HPF (0-6); UROBILINOGEN, URINE AUTO 0.2 mg/dL (0.0-2.0); WBC, URINE AUTO 46 /HPF (0-3)
== END ==
LOC: M SMT 12:22
PROVIDERS: ATTEND Urology
DX: C67.9 Malignant neoplasm of bladder, unspecified (principal)

== ENCOUNTER → 2024-08-26 | Outpatient (CLI) | payer MEDICARE ==
[2024-08-26 11:56] LABS: BASO # 0.1 10^3/uL (0.0-0.2); BASO % 0.8 % (0.0-1.0); EOS # 0.3 10^3/uL (0.0-0.5); EOS % 3.6 % (0.0-3.0); HEMATOCRIT 38.2 % (42.0-52.0); HEMOGLOBIN 12.4 g/dl (13.5-17.5); LYMPH # 1.8 10^3/uL (1.5-5.0); LYMPH % 19.4 % (24.0-44.0); MEAN CORPUSCULAR HEMOGLOBIN 29.7 pg (27.0-33.0); MEAN CORPUSCULAR HGB CONC 32.5 g/dl (32.0-36.5); MEAN CORPUSCULAR VOLUME 91.6 fl (80.0-96.0); MONO # 0.9 10^3/uL (0.0-0.8); MONO % 9.9 % (2.0-8.0); NEUTROPHILS # 6.2 10^3/uL (1.5-8.5); NEUTROPHILS % 65.9 % (36.0-66.0); PLATELET COUNT, AUTOMATED 410 10^3/uL (150-450); RED BLOOD COUNT 4.17 10^6/uL (4.30-6.10); WHITE BLOOD COUNT 9.3 10^3/uL (4.0-10.0)
[2024-08-26 12:27] LABS: C REACTIVE PROTEIN QUANTITATIV < 0.40 MG/DL (<1.0)
[2024-08-26 12:28] LABS: CREATININE, URINE 104.8 MG/DL
[2024-08-26 12:29] LABS: ALBUMIN 4.3 G/DL (3.2-5.2); ALKALINE PHOSPHATASE 89 U/L (46-116); ALT/SGPT 22 U/L (7.0-40); AST/SGOT 11 U/L (<34); BILIRUBIN,TOTAL 0.7 MG/DL (0.3-1.2); BLOOD UREA NITROGEN 22 MG/DL (9-23); CALCIUM LEVEL 9.8 MG/DL (8.3-10.6); CARBON DIOXIDE LEVEL 30 MMOL/L (20-31); CHLORIDE LEVEL 103 MMOL/L (98-107); CHOLESTEROL LEVEL 155 MG/DL (<200); CHOLESTEROL RISK RATIO 3.27 (<5); CREATININE FOR GFR 0.86 MG/DL (0.70-1.30); GLOMERULAR FILTRATION RATE > 60.0 (>35); GLUCOSE, FASTING 83 MG/DL (74-106); HDL CHOLESTEROL 47.4 MG/DL (>40); NON-HDL-C 107.6 MG/DL; POTASSIUM SERUM 4.3 MMOL/L (3.5-5.1); SODIUM LEVEL 137 MMOL/L (136-145); TOTAL PROTEIN 7.7 G/DL (5.7-8.2); TRIGLYCERIDES LEVEL 128 MG/DL (<150)
[2024-08-26 12:30] LABS: MAU/CREAT RATIO 30.5 MCG/MG (0.0-30.0)
[2024-08-26 12:38] LABS: HEMOGLOBIN A1c 5.9 % (4.0-6.0)
[2024-08-26 13:34] LABS: FREE T4 1.29 NG/DL (0.89-1.76)
[2024-08-26 13:35] LABS: THYROID STIMULATING HORMONE 4.019 uIU/ML (0.55-4.78); TOTAL 25(OH) VITAMIN D 60.9 NG/ML (20.0-100.0); VITAMIN B12 LEVEL 330 PG/ML (211-911)
== END ==
LOC: M PLALAB 08:59
PROVIDERS: ATTEND Internal Medicine Hematology
DX: D64.9 Anemia, unspecified (principal); Z79.899 Other long term (current) drug therapy

== ENCOUNTER → 2024-08-31 | Outpatient (REF) | payer MEDICARE, MEDICAID ==
[2024-08-31 13:51] LABS: APPEARANCE, URINE HAZY (CLEAR); BACTERIA, URINE AUTO NEGATIVE (NEGATIVE); BILIRUBIN, URINE AUTO NEGATIVE (NEGATIVE); BLOOD, URINE BLOOD NEGATIVE (NEGATIVE); COLOR, URINE YELLOW (YELLOW); GLUCOSE, URINE (UA) AUTO NEGATIVE (NEGATIVE); KETONE, URINE AUTO NEGATIVE (NEGATIVE); LEUKOCYTE ESTERASE, URINE AUTO 3+ (NEGATIVE); MUCUS, URINE SMALL (NEGATIVE); NITRITE, URINE AUTO NEGATIVE (NEGATIVE); PROTEIN, URINE AUTO NEGATIVE (NEGATIVE); RBC, URINE AUTO 3 /HPF (0-3); SPECIFIC GRAVITY URINE AUTO 1.013 (1.002-1.035); SQUAMOUS EPITHELIAL CELL UR AU 0 /HPF (0-6); UROBILINOGEN, URINE AUTO 0.2 mg/dL (0.0-2.0); WBC, URINE AUTO TNTC /HPF (0-3)
== END ==
LOC: M SMT 12:44
PROVIDERS: ATTEND Urology
DX: C67.9 Malignant neoplasm of bladder, unspecified (principal)

== ENCOUNTER → 2024-09-07 | Outpatient (REF) | payer MEDICARE, MEDICAID ==
[2024-09-07 11:25] LABS: APPEARANCE, URINE MANUAL CLEAR (CLEAR); BILIRUBIN, URINE MANUAL NEGATIVE (NEGATIVE); BLOOD URINE MANUAL NEGATIVE (NEGATIVE); COLOR, URINE MANUAL YELLOW (YELLOW); GLUCOSE, URINE (UA) MANUAL NEGATIVE (NEGATIVE); KETONE, URINE MANUAL NEGATIVE (NEGATIVE); LEUKOCYTE ESTERASE, URINE MAN POSITIVE (NEGATIVE); NITRITE, URINE MANUAL NEGATIVE (NEGATIVE); PROTEIN, URINE MANUAL NEGATIVE (NEGATIVE); UROBILINOGEN, URINE MANUAL NORMAL (NORMAL)
[2024-09-07 11:41] LABS: WBC, URINE 40-50 /hpf (0-3)
[2024-09-07 11:42] LABS: BACTERIA, URINE SMALL AMOUNT; MUCUS, URINE SMALL AMOUNT (NEGATIVE); SQUAMOUS EPITHELIAL CELL URINE SMALL AMOUNT /hpf (SMALL AMT)
== END ==
LOC: M SMT 09:47
PROVIDERS: ATTEND Urology
DX: C67.9 Malignant neoplasm of bladder, unspecified (principal)

== ENCOUNTER → 2024-09-14 | Outpatient (REF) | payer MEDICARE, MEDICAID ==
[2024-09-14 13:41] LABS: APPEARANCE, URINE CLEAR (CLEAR); BACTERIA, URINE AUTO NEGATIVE (NEGATIVE); BILIRUBIN, URINE AUTO NEGATIVE (NEGATIVE); BLOOD, URINE BLOOD NEGATIVE (NEGATIVE); COLOR, URINE YELLOW (YELLOW); GLUCOSE, URINE (UA) AUTO NEGATIVE (NEGATIVE); KETONE, URINE AUTO NEGATIVE (NEGATIVE); LEUKOCYTE ESTERASE, URINE AUTO TRACE (NEGATIVE); MUCUS, URINE SMALL (NEGATIVE); NITRITE, URINE AUTO NEGATIVE (NEGATIVE); PROTEIN, URINE AUTO NEGATIVE (NEGATIVE); RBC, URINE AUTO 2 /HPF (0-3); SPECIFIC GRAVITY URINE AUTO 1.015 (1.002-1.035); SQUAMOUS EPITHELIAL CELL UR AU 0 /HPF (0-6); UROBILINOGEN, URINE AUTO 0.2 mg/dL (0.0-2.0); WBC, URINE AUTO 19 /HPF (0-3)
== END ==
LOC: M SMT 12:44
PROVIDERS: ATTEND Urology
DX: C67.9 Malignant neoplasm of bladder, unspecified (principal)

== ENCOUNTER → 2024-10-19 | Outpatient (REF) | payer MEDICARE, MEDICAID | LOC: M SMT 12:45 | PROVIDERS: ATTEND Urology | DX: C67.9 Malignant neoplasm of bladder, unspecified (principal) ==

== ENCOUNTER → 2025-01-18 | Outpatient (REF) | payer MEDICARE, MEDICAID | LOC: M SMT 12:47 | PROVIDERS: ATTEND Urology | DX: C67.9 Malignant neoplasm of bladder, unspecified (principal) ==

== ENCOUNTER → 2025-03-19 | Outpatient (CLI) | payer MEDICARE, MEDICAID | LOC: M PLAIMG 12:06 | PROVIDERS: ATTEND Family Medicine | DX: R01.1 Cardiac murmur, unspecified (principal); I35.0 Nonrheumatic aortic (valve) stenosis ==

== ENCOUNTER → 2025-05-28 | Outpatient (REF) | payer MEDICARE, MEDICAID | LOC: M SMT 15:09 | PROVIDERS: ATTEND Urology | DX: C67.9 Malignant neoplasm of bladder, unspecified (principal) ==

== ENCOUNTER → 2025-07-06 | Outpatient (CLI) | payer MEDICARE, MEDICAID ==
[~2025-07-06] MED LIST changes: -RA T500C2 PO; +TURM500C10 PO
[2025-07-06 11:35] LABS: PLATELET COUNT, AUTOMATED 380 10^3/uL (150-450)
[2025-07-06 11:49] LABS: ESTIMATED AVERAGE GLUCOSE 117.0 MG/DL (60-110)
[2025-07-06 12:08] LABS: ALT/SGPT 27.0 U/L (7.0-40); AST/SGOT 17.0 U/L (<34); CALCIUM LEVEL 9.7 MG/DL (8.3-10.6); CARBON DIOXIDE LEVEL 27.0 MMOL/L (20-31); CHLORIDE LEVEL 102.0 MMOL/L (98-107); CHOLESTEROL LEVEL 163.0 MG/DL (<200); CHOLESTEROL RISK RATIO 3.66 (<5); CREATININE FOR GFR 1.02 MG/DL (0.70-1.30); GLOMERULAR FILTRATION RATE 71.1 (>35); LDL CHOLESTEROL 80.7 MG/DL (<100); NON-HDL-C 118.5 MG/DL; POTASSIUM SERUM 4.4 MMOL/L (3.5-5.1); SODIUM LEVEL 140.0 MMOL/L (136-145); TRIGLYCERIDES LEVEL 189.0 MG/DL (<150)
[2025-07-06 12:09] LABS: CREATININE, URINE 104.5 MG/DL; MALB URINE SIEMENS 14.0 MG/L; MAU/CREAT RATIO 13.3 MCG/MG (0.0-30.0)
== END ==
LOC: M PLALAB 08:02
PROVIDERS: ATTEND Family Medicine
DX: R73.03 Prediabetes (principal); I10 Essential (primary) hypertension; C67.9 Malignant neoplasm of bladder, unspecified; E78.00 Pure hypercholesterolemia, unspecified

== ENCOUNTER → 2025-09-28 | Outpatient (REF) | payer MEDICARE, MEDICAID | LOC: M SMT 12:50 | PROVIDERS: ATTEND Urology | DX: C67.9 Malignant neoplasm of bladder, unspecified (principal) ==